=== PATIENT | female | born 1945 | race Caucasian/White ===

== ENCOUNTER 2020-05-31 13:16 | Inpatient (IN) | payer MEDICARE, OTHER ==
[2020-05-31] MEDS ORDERED: Acetaminophen 325 MG Tab PO PRN (14:36)
[2020-05-31] MEDS ORDERED: Dexamethasone 4 MG Tab PO ONE (15:00)
--- NOTE | 2020-05-31 15:05 | PCM.HP.2 ---
H&P History of Present Illness - General Date of Service: 05/31/20 Admit Problem/Dx: Admission Diagnosis/Problem Admission Diagnosis/Problem Pneumonia, organism unspecified - History of Present Illness Initial Comments - Free Text/Narative: 75-year-old female diagnosed with COVID-19 on 05/22/2020 with first symptoms on 05/19/2020 was following up with her acute care clinic was noted to be hypoxemic. Patient was seen initially at the clinic in [place], [place] on 05/22/2020 with a pulse ox of 84%. Patient was sent to the hospital in [place] where she was sent home on a concentrator, azithromycin, dexamethasone, and Covid vitamin protocol. Patient apparently has had worsening of her appetite, increased shortness of breath, dizziness, decreased drinking, and become more lethargic. She is now been titrated up to 4 L/min nasal cannula with sats of 90%. Patient does complain of a dry cough, but otherwise has no complaints. Patient does appear to have some memory loss and her daughter stated that she has been seen by a physician in the past who stated that she had age-appropriate memory loss. After CTA of the chest patient stated to me that she knows of a mass on her liver that is been there for approximately 10 years. See CTA for full details. Past medical history: Thyroid cancer, postoperative hypothyroidism tubulovillous adenoma, generalized anxiety disorder with panic attacks, osteoarthritis of the left knee, obstructive sleep apnea, osteopenia, central retinal artery occlusion, right, diverticulitis/diverticulosis, hypertension, hyperlipidemia, memory loss, Past surgical history: Thyroidectomy, total, laparoscopic sigmoidectomy and laparoscopic repair of ventral incisional hernia in 2017, strabismus surgery right eye, left total knee replacement Social history: Rarely drinks alcohol Stopped smoking in 1985 Lives alone, Retired Family history: Mother with heart disease Grandparents with Alzheimer's disease - Related Data Allergies/Adverse Reactions: Allergies Allergy/AdvReac Type Severity Reaction Status Date / Time banana Allergy Cannot Verified 05/31/20 15:40 Remember Dairy Products Allergy Cannot Verified 05/31/20 15:40 Remember erythromycin base Allergy Other Verified 05/31/20 15:40 wheat Allergy Cannot Verified 05/31/20 15:40 Remember Home Medications: Home Meds Acetaminophen [Tylenol] 325 mg PO DAILY PRN 05/31/20 [History] Albuterol Sulfate [Albuterol Sulfate HFA] 2 puff INH Q4H PRN 05/31/20 [History] Aspirin [Aspirin EC] 81 mg PO DAILY 05/31/20 [History] C-Levothyroxine/Liothyronine 1 tab PO DAILY 05/31/20 [History] Calc/D3/Mag/Zn/Anitra/Preet/[place] [Calcium 600 MG Plus Vit D] 2 tab PO DAILY 05/31/20 [History] Cholecalciferol (Vitamin D3) [Vitamin D3] 2,000 units PO DAILY 05/31/20 [History] Cyanocobalamin (Vitamin B12) [Vitamin B12] 500 mcg PO DAILY 05/31/20 [History] Losartan Potassium 100 mg PO DAILY 05/31/20 [History] Melatonin 10 mg PO BEDTIME PRN 05/31/20 [History] Montelukast [Singulair] 10 mg PO BEDTIME 05/31/20 [History] Naproxen Sodium 220 mg PO DAILY PRN 05/31/20 [History] Rosuvastatin Calcium 20 mg PO TUFR 05/31/20 [History] hydroCHLOROthiazide [Hydrochlorothiazide] 50 mg PO DAILY 05/31/20 [History] Social & Family History - Tobacco Use Tobacco Use Status *Q: Former Tobacco User Used Tobacco, but Quit: Yes Month/Year Tobacco Last Used: 1983 - Caffeine Use Caffeine Use: Reports: Coffee - Recreational Drug Use Recreational Drug Use: No H&P Review of Systems - Review of Systems: Review Of Systems: Comprehensive ROS is negative, except as noted in HPI. Exam - Exam Exam: See Below - Vital Signs Vital Signs: Last Vital Signs Temp 99.9 F 05/31/20 13:35 Pulse 86 05/31/20 13:35 Resp 32 H 05/31/20 13:35 BP 95/74 05/31/20 13:35 Pulse Ox 94 L 05/31/20 14:36 Weight: 171 lb 3.2 oz - Exam Quality Assessment: Supplemental Oxygen General: Alert, Oriented, 4 HEENT: Conjunctiva Clear, EOMI, Mucosa Moist & [place], PERRLA Neck: Supple, Trachea Midline, 2 Lungs: Normal Respiratory Effort, Rales (Bibasilar) Cardiovascular: Regular Rate, Regular Rhythm GI/Abdominal Exam: Normal Bowel Sounds, Soft, Non-Tender, No Organomegaly, No Distention, No Abnormal Bruit, No Mass Extremities: Normal Inspection, Normal Range of Motion, Non-Tender, No Pedal Edema, Normal Capillary Refill Peripheral Pulses: 2+: Posterior Tibial (L), Posterior Tibial (R), Dorsalis Pedis (L), Dorsalis Pedis (R) Skin: Warm, Dry, Intact Neurological: Cranial Nerves Intact Neuro Extensive - Mental Status: Alert, Oriented x3, Normal Mood/Affect Psychiatric: Alert, Normal Affect, Normal Mood - Patient Data Lab Results Last 24 hrs: WBC 11.0, hemoglobin 13.3, platelets 221, PTT, 27.3 INR 1.04, ferritin 1389, lactic acid 1.0, C-reactive protein 11.6, albumin 2.7, sodium 138, potassium 3.3, BUN 39, creatinine 1.2, estimated GFR 44, glucose 108, calcium 8.7, magnesium 1.8, total bilirubin 0.6, AST 27, ALT 32, alkaline phosphatase 53, LDH 276, troponin I less than 0.017, proBNP 213, TSH 0.009, D-dimer greater than 35 Result Diagrams: 05/31/20 15:13 05/31/20 15:13 Imaging Impressions Last 24 hrs: Chest x-ray: Patchy bilateral infiltrates CTA chest: Preliminary 1. Potentially significant mass posterior aspect right lobe of the liver. Multiphase contrast-enhanced MR or CT recommended to further assess. 2. No CT evidence of pulmonary embolism. 3. Extensive bilateral pulmonary parenchymal abnormality suspect for pneumonia. Consider viral etiologies, bacterial etiologies, and atypical etiologies #1 Interpretation EKG Date: 05/31/20 Rhythm: NSR Rate (Beats/Min): 86 [place]: Normal P-Wave: Present QRS: Normal ST-T: Normal QT: Normal Sepsis Event Note - Focused Exam Vital Signs: Vital Signs Temp Pulse Resp BP Pulse Ox Pulse Ox 05/31/20 14:36 94 L 05/31/20 13:35 99.9 F 86 32 H 95/74 94 L - Problem List (1) Pneumonia due to COVID-19 virus SNOMED Code(s): 274563994081989012 ICD Code: U07.1 - COVID-19; J12.82 - PNEUMONIA DUE TO CORONAVIRUS DISEASE 2019 Status: Acute Current Visit: Yes (2) Respiratory failure with hypoxia SNOMED Code(s): 39679347642833490 ICD Code: J96.91 - RESPIRATORY FAILURE, UNSPECIFIED WITH HYPOXIA Status: Acute Current Visit: Yes (3) Iatrogenic hyperthyroidism SNOMED Code(s): 150911359 ICD Code: E05.80 - OTHER THYROTOXICOSIS WITHOUT THYROTOXIC CRISIS OR STORM Status: Acute Current Visit: Yes (4) Hypothyroidism associated with surgical procedure SNOMED Code(s): 42466489 ICD Code: E89.0 - POSTPROCEDURAL HYPOTHYROIDISM Status: Acute Current Visit: Yes (5) Memory loss of unknown cause SNOMED Code(s): 98416801 ICD Code: R41.3 - OTHER AMNESIA Status: Acute Current Visit: Yes (6) Generalized anxiety disorder with panic attacks SNOMED Code(s): 45429298 ICD Code: F41.1 - GENERALIZED ANXIETY DISORDER; F41.0 - PANIC DISORDER [EPISODIC PAROXYSMAL ANXIETY] Status: Acute Current Visit: Yes Problem List Initiated/Reviewed/Updated: Yes Orders Last 24hrs: Active Orders 24 hr Category Date Time Status Patient Status [ADT] Routine ADT 05/31/20 14:34 Active Cardiac Monitoring [RC] . DIRECTED Care 05/31/20 14:34 Active EKG Documentation Completion [RC] STAT Care 05/31/20 14:40 Active Oxygen Therapy [RC] PRN Care 05/31/20 14:36 Active Positioning, Patient [RC] ASDIRECTED Care 05/31/20 14:39 Active RT Chest Physiotherapy [RC] ASDIRECTED Care 05/31/20 14:42 Active RT Incentive Spirometry [RC] ASDIRECTED Care 05/31/20 14:38 Active Up With Assistance [RC] ASDIRECTED Care 05/31/20 14:36 Active VTE/DVT Education [RC] PER UNIT ROUTINE Care 05/31/20 14:36 Active Vital Signs [RC] Q4H Care 05/31/20 14:36 Active OT Evaluation and Treatment [CONS] Routine Cons 05/31/20 14:41 Active PT Evaluation and Treatment [CONS] Routine Cons 05/31/20 14:41 Active Regular Diet [DIET] Diet 05/31/20 Dinner Active Chest 1V Frontal [CR] Stat Exams 05/31/20 14:40 Ordered BASIC METABOLIC PANEL,BMP [CHEM] Stat Lab 05/31/20 14:38 Ordered C-REACTIVE PROTEIN [CHEM] Stat Lab 05/31/20 14:38 Ordered CBC WITH AUTO DIFF [HEME] Stat Lab 05/31/20 14:39 Ordered CULTURE BLOOD [BC] Routine Lab 05/31/20 15:03 Ordered CULTURE BLOOD [BC] Stat Lab 05/31/20 14:40 Ordered CULTURE SPUTUM + SMEAR [RM] Routine Lab 05/31/20 14:40 Ordered D-DIMER QUANTITATIVE [COAG] Stat Lab 05/31/20 14:38 Ordered FERRITIN [CHEM] Routine Lab 05/31/20 14:38 Ordered HEPATIC FUNCTION PANEL,HFP [CHEM] Stat Lab 05/31/20 14:38 Ordered INFLUENZA A+B AG SCREEN [RM] Routine Lab 05/31/20 14:42 Ordered INR,PT,PROTHROMBIN TIME [COAG] Routine Lab 05/31/20 14:40 Ordered LACTATE DEHYDROGENASE,LDH [CHEM] Stat Lab 05/31/20 14:38 Ordered LACTIC ACID [CHEM] Stat Lab 05/31/20 14:38 Ordered PRO B-TYPE NATRIUR PEPT,BNPPRO [CHEM] Stat Lab 05/31/20 14:42 Ordered PROCALCITONIN [REF] Stat Lab 05/31/20 14:38 Ordered TROPONIN I [CHEM] Stat Lab 05/31/20 14:38 Ordered TSH [CHEM] Routine Lab 05/31/20 14:38 Ordered UA W/MICHAEL RFLX IF INDICATED [URIN] Routine Lab 05/31/20 14:38 Ordered Acetaminophen [TylenoL] Med 05/31/20 14:36 Active 650 mg PO Q4H PRN Enoxaparin [Lovenox] Med 06/01/20 09:00 Pending 40 mg SUBCUT DAILY cefTRIAXone [Rocephin] 2 gm Med 05/31/20 15:00 Active Sodium Chloride 0.9% [Normal Saline] 100 ml IV Q24H Isolation [COMM] Routine Oth 05/31/20 14:42 Ordered Isolation [COMM] Stat Oth 05/31/20 14:38 Ordered Resuscitation Status Routine Resus Stat 05/31/20 14:36 Ordered Medication Orders Acetaminophen (Tylenol) 650 mg PO Q4H PRN PRN Reason: Pain (Mild 1-3)/fever Enoxaparin Sodium (Lovenox) 40 mg SUBCUT DAILY BRIDGER Ceftriaxone Sodium 2 gm/ (Sodium Chloride) 100 mls @ 200 mls/hr IV Q24H BRIDGER Stop: 06/04/20 15:29 Assessment/Plan Comment:: Assessment 75-year-old female with positive COVID-19 10 days ago and symptoms for 13 days from [place], [place] was transferred here as a direct admission from her clinic. COVID-19 pneumonia Possible right lower lobe pneumonia Respiratory failurehypoxemic * Patient diagnosed 10 days ago with COVID-19 and symptomatic for 13 days. * She has been worsening over the last few days. * D-dimer greater than 35, WBC 11, lactic acid 1.0, LDH 276, ferritin 1389, C- reactive protein 11.6 * CT of the chest was negative for PE * Lower extremities show no swelling or, edema, redness, or tenderness essentially making lower extremity VTE unlikely * Patient is between 10 and 13 days past Covid and has already had 9 days of dexamethasone. * She will not likely benefit from remdesivir. * I would like to give her Actemra, but we do not have any and it is a drop shipment so we will not be able to get it for 4 to 5 days. Iatrogenic hyperthyroidism Surgical removal of the thyroid secondary to thyroid cancer * She is on a combination of C levothyroxine/liothyronine 75 mcg / 25 mcg SR capsule daily * TSH is significantly low at 0.009 * Patient has a history of anxiety Generalized anxiety disorder with panic attacks * Patient is currently hyperthyroid and this would increase her anxiety and panic attacks. Hypokalemia Hypoalbuminemia * Likely secondary to poor oral intake secondary to COVID-19 * Potassium 3.3, albumin 2.7 Acute versus chronic renal disease * Creatinine 1.2 with an estimated GFR of 44 * Some prerenal component could be part of this with BUN of 39 a creatinine of 1.2 making her BUN to creatinine ratio greater than 20 * Known poor oral intake Plan * Admit to medical floor on telemetry and continuous pulse ox * FiO2 to keep SPO2 between 88 and 94% * Rocephin x5 days * Pepcid, melatonin, vitamin D, zinc * Incentive spirometry and Acapella * DuoNeb every 6 hours as needed * Patient required high flow nasal cannula almost immediately once arriving to the floor * Elevated D-dimer prompted starting a bolus of heparin while we are waiting CTA. CT machine was down initially delaying imaging. Once PE was ruled out Heparin was stopped and patient will be switched over to Lovenox for VTE prophylaxis. * Give patient 1 L LR over 10 hours to help with dehydration and possible renal insufficiency. * Patient is out of the window for remdesivir. * Give last dose of dexamethasone. * Decrease thyroid medications to only levothyroxine at 75 mcg daily * Follow Covid labs daily * Hold hydrochlorothiazide but continue other medications as propria. * Dietary consult and encourage oral intake. * CODE STATUS: DNR/DNI * Next of kin Yvrose: - Mortality Measure Prognosis:: Poor
--- NOTE | 2020-05-31 16:03 | CR ---
Chest: Portable view of the chest was obtained. Comparison: No prior chest imaging is available. Areas of increased density are seen within both inferior lungs. Findings most likely have the appearance of atelectasis but difficult to exclude an area of pneumonia on the right side. Upper lungs are clear. Heart size and mediastinum are normal. Surgical clips are seen within the neck. Impression: 1. Areas of increased density within both lung bases as noted above. Findings most likely due to prominent atelectasis although difficult to exclude right basilar pneumonia. 2. Other incidental findings as noted above. Diagnostic code #3
[2020-05-31] MEDS: cefTRIAXone 2 GM in Sodium Chloride 0.9% 100 ML IV SCH (16:41)
[2020-05-31] MEDS ORDERED: Potassium Chloride 20 MEQ Tab.ER PO ONE (17:15)
[2020-05-31] MEDS ORDERED: Heparin Sodium/D5W 25,000 UNITS/500 ML BAG IV SCH (17:15)
[2020-05-31] MEDS ORDERED: Heparin Sodium 5,000 Units/ML Vial IVPUSH ONE (17:30)
[2020-05-31] MEDS ORDERED: Magnesium Sulfate/Water 2 GM in Premix Bag 1 BAG IV ONE (17:31)
[2020-05-31] MEDS ORDERED: Tocilizumab 400 MG/20 ML SDV SUBCUT ONE (17:59)
[2020-05-31] MEDS ORDERED: Iopamidol 755 Mg/ML 100 ML Bottle IVPUSH ONE (18:19)
[2020-05-31] MEDS: Melatonin 3 MG Tab PO SCH (20:44)
[2020-05-31] MEDS: Famotidine 20 MG Tab PO SCH (20:45)
[2020-05-31] MEDS: Montelukast 10 MG Tab PO SCH (20:45)
[2020-05-31] MEDS ORDERED: Albuterol/Ipratropium 3.0-0.5 MG/3 ML Neb Soln NEB PRN (21:06)
[2020-05-31] MEDS ORDERED: Lactated Ringers 1,000 ML IV SCH (21:15)
[2020-06-01] MEDS ORDERED: Levothyroxine 75 MCG Tab PO SCH (06:00)
[2020-06-01] MEDS: Enoxaparin 40 MG/0.4 ML Syringe SUBCUT SCH ×2 (08:31→21:33)
[2020-06-01] MEDS: Losartan 100 MG Tab PO SCH (08:36)
[2020-06-01] MEDS: Famotidine 20 MG Tab PO SCH ×2 (08:36→21:34)
[2020-06-01] MEDS: Cholecalciferol (Vitamin D3) 5,000 UNIT Cap PO SCH (08:37)
[2020-06-01] MEDS: Aspirin 81 MG Tab.EC PO SCH (08:37)
[2020-06-01] MEDS ORDERED: Enoxaparin 40 MG/0.4 ML Syringe SUBCUT SCH (09:00)
[2020-06-01] MEDS ORDERED: Zinc Sulfate 220 MG Cap PO ONE (09:00)
[2020-06-01] MEDS: Zinc Sulfate 220 MG Cap PO SCH (09:23)
--- NOTE | 2020-06-01 12:48 | PCM.PN ---
- General Info Date of Service: 06/01/20 Admission Dx/Problem (Free Text): Admission Diagnosis/Problem Admission Diagnosis/Problem Pneumonia, organism unspecified Subjective Update: Patient is now on high flow nasal cannula. She has no complaints other than continued cough. Appetite is very good and she states she is continues to be hungry. We were able to get Actemra for today. Functional Status: Reports: Pain Controlled - Review of Systems General: Reports: No Symptoms HEENT: Reports: No Symptoms Pulmonary: Reports: Shortness of Breath, Cough Cardiovascular: Reports: No Symptoms Gastrointestinal: Reports: No Symptoms Musculoskeletal: Reports: No Symptoms Psychiatric: Reports: No Symptoms - Patient Data Vitals - Most Recent: Last Vital Signs Temp 97.7 F 06/01/20 12:11 Pulse 59 L 06/01/20 12:11 Resp 20 06/01/20 12:11 BP 126/74 06/01/20 12:11 Pulse Ox 93 L 06/01/20 12:11 Weight - Most Recent: 170 lb 6.4 oz I&O - Last 24 Hours: Intake & Output 05/31/20 06/01/20 06/01/20 22:59 06:59 14:59 Intake Total 979 1147 500 Output Total 975 Balance 979 172 500 Lab Results Last 24 Hours: Laboratory Results - last 24 hr 05/31/20 05/31/20 05/31/20 Range/Units 15:13 15:13 15:13 WBC (3.98-10.04) K/mm3 RBC (3.98-5.22) M/mm3 Hgb (11.2-15.7) gm/dl Hct (34.1-44.9) % MCV (79.4-94.8) fl MCH (25.6-32.2) pg MCHC (32.2-35.5) g/dl RDW Std Deviation (36.4-46.3) fL Plt Count (182-369) K/mm3 MPV (9.4-12.3) fl Neut % (Auto) (34.0-71.1) % Lymph % (Auto) (19.3-51.7) % Taylor % (Auto) (4.7-12.5) % Eos % (Auto) (0.7-5.8) Baso % (Auto) (0.1-1.2) % Neut # (Auto) (1.56-6.13) K/mm3 Lymph # (Auto) (1.18-3.74) K/mm3 Taylor # (Auto) (0.24-0.36) K/mm3 Eos # (Auto) (0.04-0.36) K/mm3 Baso # (Auto) (0.01-0.08) K/mm3 Manual Slide Review PT 11.1 (9.7-12.0) SECONDS INR 1.04 APTT (21.7-31.4) SECONDS D-Dimer, Quantitative > 35.20 H (0.19-0.50) mg/L Puncture Site ABG pH (7.35-7.45) ABG pCO2 (35.0-45.0) mmHg ABG pO2 (80.0-100.0) mmHg ABG HCO3 (22.0-26.0) meq/L ABG O2 Saturation (96.0-97.0) % ABG Base Excess (-2-2.0) David Test A-a Gradient mmHg O2 Delivery Device Oxygen Flow Rate FiO2 (21.00-100.00) % Sodium 138 (136-145) mEq/L Potassium 3.3 L (3.5-5.1) mEq/L Chloride 98 (98-107) mEq/L Carbon Dioxide 29 (21-32) mEq/L Anion Gap 14.3 (5-15) BUN 39 H (7-18) mg/dL Creatinine 1.2 H (0.55-1.02) mg/dL Est Cr Clr Drug Dosing 31.05 mL/min Estimated GFR (MDRD) 44 (>60) mL/min BUN/Creatinine Ratio 32.5 H (14-18) Glucose 108 (83-115) mg/dL Lactic Acid (0.4-2.0) mmol/L Calcium 8.7 (8.5-10.1) mg/dL Phosphorus (2.6-4.7) mg/dL Magnesium (1.8-2.4) mg/dl Ferritin 1389 H (8-252) ng/ml Total Bilirubin 0.6 (0.2-1.0) mg/dL Direct Bilirubin 0.10 (0.0-0.2) mg/dl Indirect Bilirubin 0.50 AST 27 (15-37) U/L ALT 32 (14-59) U/L Alkaline Phosphatase 53 (46-116) U/L Lactate Dehydrogenase 276 H (81-234) U/L Troponin I < 0.017 (0.00-0.056) ng/mL C-Reactive Protein 11.6 H* (<1.0) mg/dL NT-Pro-B Natriuret Pep (0-450) pg/mL Total Protein 6.8 (6.4-8.2) g/dl Albumin 2.7 L (3.4-5.0) g/dl Globulin 4.1 gm/dL Albumin/Globulin Ratio 0.7 L (1-2) TSH 3rd Generation 0.009 L (0.358-3.74) uIU/mL Urine Color (Yellow) Urine Appearance (Clear) Urine pH (5.0-8.0) Ur Specific [place] (1.005-1.030) Urine Protein (Negative) Urine Glucose (UA) (Negative) Urine Ketones (Negative) Urine Occult Blood (Negative) Urine Nitrite (Negative) Urine Bilirubin (Negative) Urine Urobilinogen (0.2-1.0) Ur Leukocyte Esterase (Negative) 05/31/20 05/31/20 05/31/20 Range/Units 15:13 15:13 15:13 WBC 11.05 H (3.98-10.04) K/mm3 RBC 4.79 (3.98-5.22) M/mm3 Hgb 13.3 (11.2-15.7) gm/dl Hct 41.9 (34.1-44.9) % MCV 87.5 (79.4-94.8) fl MCH 27.8 (25.6-32.2) pg MCHC 31.7 L (32.2-35.5) g/dl RDW Std Deviation 45.2 (36.4-46.3) fL Plt Count 221 (182-369) K/mm3 MPV 11.1 (9.4-12.3) fl Neut % (Auto) 88.9 H (34.0-71.1) % Lymph % (Auto) 5.9 L (19.3-51.7) % Taylor % (Auto) 4.7 (4.7-12.5) % Eos % (Auto) 0.1 L (0.7-5.8) Baso % (Auto) 0.1 (0.1-1.2) % Neut # (Auto) 9.83 H (1.56-6.13) K/mm3 Lymph # (Auto) 0.65 L (1.18-3.74) K/mm3 Taylor # (Auto) 0.52 H (0.24-0.36) K/mm3 Eos # (Auto) 0.01 L (0.04-0.36) K/mm3 Baso # (Auto) 0.01 (0.01-0.08) K/mm3 Manual Slide Review Abnormal smear PT (9.7-12.0) SECONDS INR APTT (21.7-31.4) SECONDS D-Dimer, Quantitative (0.19-0.50) mg/L Puncture Site ABG pH (7.35-7.45) ABG pCO2 (35.0-45.0) mmHg ABG pO2 (80.0-100.0) mmHg ABG HCO3 (22.0-26.0) meq/L ABG O2 Saturation (96.0-97.0) % ABG Base Excess (-2-2.0) David Test A-a Gradient mmHg O2 Delivery Device Oxygen Flow Rate FiO2 (21.00-100.00) % Sodium (136-145) mEq/L Potassium (3.5-5.1) mEq/L Chloride (98-107) mEq/L Carbon Dioxide (21-32) mEq/L Anion Gap (5-15) BUN (7-18) mg/dL Creatinine (0.55-1.02) mg/dL Est Cr Clr Drug Dosing mL/min Estimated GFR (MDRD) (>60) mL/min BUN/Creatinine Ratio (14-18) Glucose (83-115) mg/dL Lactic Acid 1.0 (0.4-2.0) mmol/L Calcium (8.5-10.1) mg/dL Phosphorus (2.6-4.7) mg/dL Magnesium (1.8-2.4) mg/dl Ferritin (8-252) ng/ml Total Bilirubin (0.2-1.0) mg/dL Direct Bilirubin (0.0-0.2) mg/dl Indirect Bilirubin AST (15-37) U/L ALT (14-59) U/L Alkaline Phosphatase (46-116) U/L Lactate Dehydrogenase (81-234) U/L Troponin I (0.00-0.056) ng/mL C-Reactive Protein (<1.0) mg/dL NT-Pro-B Natriuret Pep 213 (0-450) pg/mL Total Protein (6.4-8.2) g/dl Albumin (3.4-5.0) g/dl Globulin gm/dL Albumin/Globulin Ratio (1-2) TSH 3rd Generation (0.358-3.74) uIU/mL Urine Color (Yellow) Urine Appearance (Clear) Urine pH (5.0-8.0) Ur Specific [place] (1.005-1.030) Urine Protein (Negative) Urine Glucose (UA) (Negative) Urine Ketones (Negative) Urine Occult Blood (Negative) Urine Nitrite (Negative) Urine Bilirubin (Negative) Urine Urobilinogen (0.2-1.0) Ur Leukocyte Esterase (Negative) 05/31/20 05/31/20 05/31/20 Range/Units 16:27 16:27 17:57 WBC (3.98-10.04) K/mm3 RBC (3.98-5.22) M/mm3 Hgb (11.2-15.7) gm/dl Hct (34.1-44.9) % MCV (79.4-94.8) fl MCH (25.6-32.2) pg MCHC (32.2-35.5) g/dl RDW Std Deviation (36.4-46.3) fL Plt Count (182-369) K/mm3 MPV (9.4-12.3) fl Neut % (Auto) (34.0-71.1) % Lymph % (Auto) (19.3-51.7) % Taylor % (Auto) (4.7-12.5) % Eos % (Auto) (0.7-5.8) Baso % (Auto) (0.1-1.2) % Neut # (Auto) (1.56-6.13) K/mm3 Lymph # (Auto) (1.18-3.74) K/mm3 Taylor # (Auto) (0.24-0.36) K/mm3 Eos # (Auto) (0.04-0.36) K/mm3 Baso # (Auto) (0.01-0.08) K/mm3 Manual Slide Review PT (9.7-12.0) SECONDS INR APTT 27.3 (21.7-31.4) SECONDS D-Dimer, Quantitative (0.19-0.50) mg/L Puncture Site Rt radial ABG pH 7.46 H (7.35-7.45) ABG pCO2 39.3 (35.0-45.0) mmHg ABG pO2 75.0 L (80.0-100.0) mmHg ABG HCO3 27.6 H (22.0-26.0) meq/L ABG O2 Saturation 95.5 L (96.0-97.0) % ABG Base Excess 4.0 H (-2-2.0) David Test Positive A-a Gradient 232 mmHg O2 Delivery Device Hiflow nasal cannula Oxygen Flow Rate 50.0 FiO2 50.00 (21.00-100.00) % Sodium (136-145) mEq/L Potassium (3.5-5.1) mEq/L Chloride (98-107) mEq/L Carbon Dioxide (21-32) mEq/L Anion Gap (5-15) BUN (7-18) mg/dL Creatinine (0.55-1.02) mg/dL Est Cr Clr Drug Dosing mL/min Estimated GFR (MDRD) (>60) mL/min BUN/Creatinine Ratio (14-18) Glucose (83-115) mg/dL Lactic Acid (0.4-2.0) mmol/L Calcium (8.5-10.1) mg/dL Phosphorus (2.6-4.7) mg/dL Magnesium 1.8 (1.8-2.4) mg/dl Ferritin (8-252) ng/ml Total Bilirubin (0.2-1.0) mg/dL Direct Bilirubin (0.0-0.2) mg/dl Indirect Bilirubin AST (15-37) U/L ALT (14-59) U/L Alkaline Phosphatase (46-116) U/L Lactate Dehydrogenase (81-234) U/L Troponin I (0.00-0.056) ng/mL C-Reactive Protein (<1.0) mg/dL NT-Pro-B Natriuret Pep (0-450) pg/mL Total Protein (6.4-8.2) g/dl Albumin (3.4-5.0) g/dl Globulin gm/dL Albumin/Globulin Ratio (1-2) TSH 3rd Generation (0.358-3.74) uIU/mL Urine Color (Yellow) Urine Appearance (Clear) Urine pH (5.0-8.0) Ur Specific [place]ula (1.005-1.030) Urine Protein (Negative) Urine Glucose (UA) (Negative) Urine Ketones (Negative) Urine Occult Blood (Negative) Urine Nitrite (Negative) Urine Bilirubin (Negative) Urine Urobilinogen (0.2-1.0) Ur Leukocyte Esterase (Negative) 05/31/20 06/01/20 06/01/20 Range/Units 21:25 06:00 06:00 WBC 7.65 (3.98-10.04) K/mm3 RBC 4.81 (3.98-5.22) M/mm3 Hgb 13.2 (11.2-15.7) gm/dl Hct 42.4 (34.1-44.9) % MCV 88.1 (79.4-94.8) fl MCH 27.4 (25.6-32.2) pg MCHC 31.1 L (32.2-35.5) g/dl RDW Std Deviation 46.1 (36.4-46.3) fL Plt Count 213 (182-369) K/mm3 MPV 11.2 (9.4-12.3) fl Neut % (Auto) 86.5 H (34.0-71.1) % Lymph % (Auto) 10.2 L (19.3-51.7) % Taylor % (Auto) 2.7 L (4.7-12.5) % Eos % (Auto) 0 L (0.7-5.8) Baso % (Auto) 0.3 (0.1-1.2) % Neut # (Auto) 6.62 H (1.56-6.13) K/mm3 Lymph # (Auto) 0.78 L (1.18-3.74) K/mm3 Taylor # (Auto) 0.21 L (0.24-0.36) K/mm3 Eos # (Auto) 0.00 L (0.04-0.36) K/mm3 Baso # (Auto) 0.02 (0.01-0.08) K/mm3 Manual Slide Review Abnormal smear PT (9.7-12.0) SECONDS INR APTT 27.1 (21.7-31.4) SECONDS D-Dimer, Quantitative 10.65 H (0.19-0.50) mg/L Puncture Site ABG pH (7.35-7.45) ABG pCO2 (35.0-45.0) mmHg ABG pO2 (80.0-100.0) mmHg ABG HCO3 (22.0-26.0) meq/L ABG O2 Saturation (96.0-97.0) % ABG Base Excess (-2-2.0) David Test A-a Gradient mmHg O2 Delivery Device Oxygen Flow Rate FiO2 (21.00-100.00) % Sodium (136-145) mEq/L Potassium (3.5-5.1) mEq/L Chloride (98-107) mEq/L Carbon Dioxide (21-32) mEq/L Anion Gap (5-15) BUN (7-18) mg/dL Creatinine (0.55-1.02) mg/dL Est Cr Clr Drug Dosing mL/min Estimated GFR (MDRD) (>60) mL/min BUN/Creatinine Ratio (14-18) Glucose (83-115) mg/dL Lactic Acid (0.4-2.0) mmol/L Calcium (8.5-10.1) mg/dL Phosphorus (2.6-4.7) mg/dL Magnesium (1.8-2.4) mg/dl Ferritin (8-252) ng/ml Total Bilirubin (0.2-1.0) mg/dL Direct Bilirubin (0.0-0.2) mg/dl Indirect Bilirubin AST (15-37) U/L ALT (14-59) U/L Alkaline Phosphatase (46-116) U/L Lactate Dehydrogenase (81-234) U/L Troponin I (0.00-0.056) ng/mL C-Reactive Protein (<1.0) mg/dL NT-Pro-B Natriuret Pep (0-450) pg/mL Total Protein (6.4-8.2) g/dl Albumin (3.4-5.0) g/dl Globulin gm/dL Albumin/Globulin Ratio (1-2) TSH 3rd Generation (0.358-3.74) uIU/mL Urine Color Yellow (Yellow) Urine Appearance Clear (Clear) Urine pH 6.5 (5.0-8.0) Ur Specific [place] 1.010 (1.005-1.030) Urine Protein Negative (Negative) Urine Glucose (UA) Trace H (Negative) Urine Ketones Negative (Negative) Urine Occult Blood Negative (Negative) Urine Nitrite Negative (Negative) Urine Bilirubin Negative (Negative) Urine Urobilinogen 0.2 (0.2-1.0) Ur Leukocyte Esterase Negative (Negative) 06/01/20 Range/Units 06:00 WBC (3.98-10.04) K/mm3 RBC (3.98-5.22) M/mm3 Hgb (11.2-15.7) gm/dl Hct (34.1-44.9) % MCV (79.4-94.8) fl MCH (25.6-32.2) pg MCHC (32.2-35.5) g/dl RDW Std Deviation (36.4-46.3) fL Plt Count (182-369) K/mm3 MPV (9.4-12.3) fl Neut % (Auto) (34.0-71.1) % Lymph % (Auto) (19.3-51.7) % Taylor % (Auto) (4.7-12.5) % Eos % (Auto) (0.7-5.8) Baso % (Auto) (0.1-1.2) % Neut # (Auto) (1.56-6.13) K/mm3 Lymph # (Auto) (1.18-3.74) K/mm3 Taylor # (Auto) (0.24-0.36) K/mm3 Eos # (Auto) (0.04-0.36) K/mm3 Baso # (Auto) (0.01-0.08) K/mm3 Manual Slide Review PT (9.7-12.0) SECONDS INR APTT (21.7-31.4) SECONDS D-Dimer, Quantitative (0.19-0.50) mg/L Puncture Site ABG pH (7.35-7.45) ABG pCO2 (35.0-45.0) mmHg ABG pO2 (80.0-100.0) mmHg ABG HCO3 (22.0-26.0) meq/L ABG O2 Saturation (96.0-97.0) % ABG Base Excess (-2-2.0) David Test A-a Gradient mmHg O2 Delivery Device Oxygen Flow Rate FiO2 (21.00-100.00) % Sodium 143 (136-145) mEq/L Potassium 4.1 (3.5-5.1) mEq/L Chloride 104 (98-107) mEq/L Carbon Dioxide 32 (21-32) mEq/L Anion Gap 11.1 (5-15) BUN 37 H (7-18) mg/dL Creatinine 0.9 (0.55-1.02) mg/dL Est Cr Clr Drug Dosing 41.40 mL/min Estimated GFR (MDRD) > 60 (>60) mL/min BUN/Creatinine Ratio 41.1 H (14-18) Glucose 144 H (83-115) mg/dL Lactic Acid (0.4-2.0) mmol/L Calcium 8.9 (8.5-10.1) mg/dL Phosphorus 3.8 (2.6-4.7) mg/dL Magnesium 2.6 H (1.8-2.4) mg/dl Ferritin (8-252) ng/ml Total Bilirubin 0.4 (0.2-1.0) mg/dL Direct Bilirubin (0.0-0.2) mg/dl Indirect Bilirubin AST 26 (15-37) U/L ALT 30 (14-59) U/L Alkaline Phosphatase 50 (46-116) U/L Lactate Dehydrogenase (81-234) U/L Troponin I (0.00-0.056) ng/mL C-Reactive Protein 15.9 H* (<1.0) mg/dL NT-Pro-B Natriuret Pep (0-450) pg/mL Total Protein 6.8 (6.4-8.2) g/dl Albumin 2.4 L (3.4-5.0) g/dl Globulin 4.4 gm/dL Albumin/Globulin Ratio 0.6 L (1-2) TSH 3rd Generation (0.358-3.74) uIU/mL Urine Color (Yellow) Urine Appearance (Clear) Urine pH (5.0-8.0) Ur Specific Sula (1.005-1.030) Urine Protein (Negative) Urine Glucose (UA) (Negative) Urine Ketones (Negative) Urine Occult Blood (Negative) Urine Nitrite (Negative) Urine Bilirubin (Negative) Urine Urobilinogen (0.2-1.0) Ur Leukocyte Esterase (Negative) Med Orders - Current: Current Medications Acetaminophen (Tylenol) 650 mg PO Q4H PRN PRN Reason: Pain (Mild 1-3)/fever Last Admin: 05/31/20 16:42 Dose: 650 mg Documented by: Albuterol/Ipratropium (Duoneb 3.0-0.5 Mg/3 Ml) 3 ml NEB Q6HRRT PRN PRN Reason: Dyspnea Aspirin (Halfprin) 81 mg PO DAILY [facility] Last Admin: 06/01/20 08:37 Dose: 81 mg Documented by: Cholecalciferol (Vitamin D3) 5,000 unit PO DAILY [facility] Last Admin: 06/01/20 08:37 Dose: 5,000 unit Documented by: Enoxaparin Sodium (Lovenox) 40 mg SUBCUT Q12H [facility] Last Admin: 06/01/20 08:31 Dose: 40 mg Documented by: Famotidine (Pepcid) 20 mg PO BID [facility] Last Admin: 06/01/20 08:36 Dose: 20 mg Documented by: Ceftriaxone Sodium 2 gm/ (Sodium Chloride) 100 mls @ 200 mls/hr IV Q24H [facility] Stop: 06/04/20 15:29 Last Admin: 05/31/20 16:41 Dose: 200 mls/hr Documented by: Tocilizumab 600 mg/ Sodium (Chloride) 100 mls @ 100 mls/hr IV ONETIME [facility] Levothyroxine Sodium (Levothyroxine) 75 mcg PO ACBREAKFAST [facility] Losartan Potassium (Cozaar) 100 mg PO DAILY [facility] Last Admin: 06/01/20 08:36 Dose: 100 mg Documented by: Melatonin (Melatonin) 9 mg PO BEDTIME [facility] Last Admin: 05/31/20 20:44 Dose: 9 mg Documented by: Montelukast Sodium (Singulair) 10 mg PO BEDTIME [facility] Last Admin: 05/31/20 20:45 Dose: 10 mg Documented by: Zinc Sulfate (Zincate) 220 mg PO DAILY [facility] Last Admin: 06/01/20 09:23 Dose: Not Given Documented by: Discontinued Medications Dexamethasone (Dexamethasone) 6 mg PO ONETIME ONE Stop: 05/31/20 15:01 Last Admin: 05/31/20 16:41 Dose: 6 mg Documented by: Enoxaparin Sodium (Lovenox) 40 mg SUBCUT DAILY [facility] Heparin Sodium (Porcine) (Heparin Sodium) 5,000 units IVPUSH .BOLUS ONE Stop: 05/31/20 17:31 Last Admin: 05/31/20 17:45 Dose: 5,000 units Documented by: Heparin Sodium/Dextrose (Heparin 25,000 Units In D5w 500 Ml) 25,000 units in 500 mls @ 26 mls/hr IV TITRATE BRIDGER; Protocol Last Admin: 05/31/20 17:45 Dose: 1,300 units/hr, 26 mls/hr Documented by: Magnesium Sulfate 2 gm/ Premix 50 mls @ 25 mls/hr IV ONETIME ONE Stop: 05/31/20 19:30 Last Admin: 05/31/20 18:14 Dose: 25 mls/hr Documented by: Lactated Ringer's (Ringers, Lactated) 1,000 mls @ 100 mls/hr IV ASDIRECTED [facility] Stop: 06/01/20 07:14 Last Admin: 06/01/20 00:21 Dose: 100 mls/hr Documented by: Iopamidol (Isovue-370 (76%)) 100 ml IVPUSH ONETIME ONE Stop: 05/31/20 18:20 Last Admin: 05/31/20 18:51 Dose: 100 ml Documented by: Potassium Chloride (Klor-Con M20) 40 meq PO ONETIME ONE Stop: 05/31/20 17:16 Last Admin: 05/31/20 17:46 Dose: 40 meq Documented by: Zinc Sulfate (Zincate) 220 mg PO ONETIME ONE Stop: 06/01/20 09:01 Last Admin: 06/01/20 09:23 Dose: 220 mg Documented by: - Exam Quality Assessment: Supplemental Oxygen General: Alert, Oriented HEENT: Pupils Equal, Mucous Membr. Moist/[place] Neck: Supple Lungs: Rales (Bibasilar). No: Normal Respiratory Effort Cardiovascular: Regular Rate, Regular Rhythm Extremities: Normal Inspection, Normal Range of Motion, Non-Tender, No Pedal Edema, Normal Capillary Refill Psy/Mental Status: Alert, Normal Affect, Normal Mood - Patient Data Lab Results Last 24 hrs: Laboratory Results - last 24 hr 05/31/20 05/31/20 05/31/20 Range/Units 15:13 15:13 15:13 WBC (3.98-10.04) K/mm3 RBC (3.98-5.22) M/mm3 Hgb (11.2-15.7) gm/dl Hct (34.1-44.9) % MCV (79.4-94.8) fl MCH (25.6-32.2) pg MCHC (32.2-35.5) g/dl RDW Std Deviation (36.4-46.3) fL Plt Count (182-369) K/mm3 MPV (9.4-12.3) fl Neut % (Auto) (34.0-71.1) % Lymph % (Auto) (19.3-51.7) % Taylor % (Auto) (4.7-12.5) % Eos % (Auto) (0.7-5.8) Baso % (Auto) (0.1-1.2) % Neut # (Auto) (1.56-6.13) K/mm3 Lymph # (Auto) (1.18-3.74) K/mm3 Taylor # (Auto) (0.24-0.36) K/mm3 Eos # (Auto) (0.04-0.36) K/mm3 Baso # (Auto) (0.01-0.08) K/mm3 Manual Slide Review PT 11.1 (9.7-12.0) SECONDS INR 1.04 APTT (21.7-31.4) SECONDS D-Dimer, Quantitative > 35.20 H (0.19-0.50) mg/L Puncture Site ABG pH (7.35-7.45) ABG pCO2 (35.0-45.0) mmHg ABG pO2 (80.0-100.0) mmHg ABG HCO3 (22.0-26.0) meq/L ABG O2 Saturation (96.0-97.0) % ABG Base Excess (-2-2.0) David Test A-a Gradient mmHg O2 Delivery Device Oxygen Flow Rate FiO2 (21.00-100.00) % Sodium 138 (136-145) mEq/L Potassium 3.3 L (3.5-5.1) mEq/L Chloride 98 (98-107) mEq/L Carbon Dioxide 29 (21-32) mEq/L Anion Gap 14.3 (5-15) BUN 39 H (7-18) mg/dL Creatinine 1.2 H (0.55-1.02) mg/dL Est Cr Clr Drug Dosing 31.05 mL/min Estimated GFR (MDRD) 44 (>60) mL/min BUN/Creatinine Ratio 32.5 H (14-18) Glucose 108 (83-115) mg/dL Lactic Acid (0.4-2.0) mmol/L Calcium 8.7 (8.5-10.1) mg/dL Phosphorus (2.6-4.7) mg/dL Magnesium (1.8-2.4) mg/dl Ferritin 1389 H (8-252) ng/ml Total Bilirubin 0.6 (0.2-1.0) mg/dL Direct Bilirubin 0.10 (0.0-0.2) mg/dl Indirect Bilirubin 0.50 AST 27 (15-37) U/L ALT 32 (14-59) U/L Alkaline Phosphatase 53 (46-116) U/L Lactate Dehydrogenase 276 H (81-234) U/L Troponin I < 0.017 (0.00-0.056) ng/mL C-Reactive Protein 11.6 H* (<1.0) mg/dL NT-Pro-B Natriuret Pep (0-450) pg/mL Total Protein 6.8 (6.4-8.2) g/dl Albumin 2.7 L (3.4-5.0) g/dl Globulin 4.1 gm/dL Albumin/Globulin Ratio 0.7 L (1-2) TSH 3rd Generation 0.009 L (0.358-3.74) uIU/mL Urine Color (Yellow) Urine Appearance (Clear) Urine pH (5.0-8.0) Ur Specific [place] (1.005-1.030) Urine Protein (Negative) Urine Glucose (UA) (Negative) Urine Ketones (Negative) Urine Occult Blood (Negative) Urine Nitrite (Negative) Urine Bilirubin (Negative) Urine Urobilinogen (0.2-1.0) Ur Leukocyte Esterase (Negative) 05/31/20 05/31/20 05/31/20 Range/Units 15:13 15:13 15:13 WBC 11.05 H (3.98-10.04) K/mm3 RBC 4.79 (3.98-5.22) M/mm3 Hgb 13.3 (11.2-15.7) gm/dl Hct 41.9 (34.1-44.9) % MCV 87.5 (79.4-94.8) fl MCH 27.8 (25.6-32.2) pg MCHC 31.7 L (32.2-35.5) g/dl RDW Std Deviation 45.2 (36.4-46.3) fL Plt Count 221 (182-369) K/mm3 MPV 11.1 (9.4-12.3) fl Neut % (Auto) 88.9 H (34.0-71.1) % Lymph % (Auto) 5.9 L (19.3-51.7) % Taylor % (Auto) 4.7 (4.7-12.5) % Eos % (Auto) 0.1 L (0.7-5.8) Baso % (Auto) 0.1 (0.1-1.2) % Neut # (Auto) 9.83 H (1.56-6.13) K/mm3 Lymph # (Auto) 0.65 L (1.18-3.74) K/mm3 Taylor # (Auto) 0.52 H (0.24-0.36) K/mm3 Eos # (Auto) 0.01 L (0.04-0.36) K/mm3 Baso # (Auto) 0.01 (0.01-0.08) K/mm3 Manual Slide Review Abnormal smear PT (9.7-12.0) SECONDS INR APTT (21.7-31.4) SECONDS D-Dimer, Quantitative (0.19-0.50) mg/L Puncture Site ABG pH (7.35-7.45) ABG pCO2 (35.0-45.0) mmHg ABG pO2 (80.0-100.0) mmHg ABG HCO3 (22.0-26.0) meq/L ABG O2 Saturation (96.0-97.0) % ABG Base Excess (-2-2.0) David Test A-a Gradient mmHg O2 Delivery Device Oxygen Flow Rate FiO2 (21.00-100.00) % Sodium (136-145) mEq/L Potassium (3.5-5.1) mEq/L Chloride (98-107) mEq/L Carbon Dioxide (21-32) mEq/L Anion Gap (5-15) BUN (7-18) mg/dL Creatinine (0.55-1.02) mg/dL Est Cr Clr Drug Dosing mL/min Estimated GFR (MDRD) (>60) mL/min BUN/Creatinine Ratio (14-18) Glucose (83-115) mg/dL Lactic Acid 1.0 (0.4-2.0) mmol/L Calcium (8.5-10.1) mg/dL Phosphorus (2.6-4.7) mg/dL Magnesium (1.8-2.4) mg/dl Ferritin (8-252) ng/ml Total Bilirubin (0.2-1.0) mg/dL Direct Bilirubin (0.0-0.2) mg/dl Indirect Bilirubin AST (15-37) U/L ALT (14-59) U/L Alkaline Phosphatase (46-116) U/L Lactate Dehydrogenase (81-234) U/L Troponin I (0.00-0.056) ng/mL C-Reactive Protein (<1.0) mg/dL NT-Pro-B Natriuret Pep 213 (0-450) pg/mL Total Protein (6.4-8.2) g/dl Albumin (3.4-5.0) g/dl Globulin gm/dL Albumin/Globulin Ratio (1-2) TSH 3rd Generation (0.358-3.74) uIU/mL Urine Color (Yellow) Urine Appearance (Clear) Urine pH (5.0-8.0) Ur Specific S[place] (1.005-1.030) Urine Protein (Negative) Urine Glucose (UA) (Negative) Urine Ketones (Negative) Urine Occult Blood (Negative) Urine Nitrite (Negative) Urine Bilirubin (Negative) Urine Urobilinogen (0.2-1.0) Ur Leukocyte Esterase (Negative) 05/31/20 05/31/20 05/31/20 Range/Units 16:27 16:27 17:57 WBC (3.98-10.04) K/mm3 RBC (3.98-5.22) M/mm3 Hgb (11.2-15.7) gm/dl Hct (34.1-44.9) % MCV (79.4-94.8) fl MCH (25.6-32.2) pg MCHC (32.2-35.5) g/dl RDW Std Deviation (36.4-46.3) fL Plt Count (182-369) K/mm3 MPV (9.4-12.3) fl Neut % (Auto) (34.0-71.1) % Lymph % (Auto) (19.3-51.7) % Taylor % (Auto) (4.7-12.5) % Eos % (Auto) (0.7-5.8) Baso % (Auto) (0.1-1.2) % Neut # (Auto) (1.56-6.13) K/mm3 Lymph # (Auto) (1.18-3.74) K/mm3 Taylor # (Auto) (0.24-0.36) K/mm3 Eos # (Auto) (0.04-0.36) K/mm3 Baso # (Auto) (0.01-0.08) K/mm3 Manual Slide Review PT (9.7-12.0) SECONDS INR APTT 27.3 (21.7-31.4) SECONDS D-Dimer, Quantitative (0.19-0.50) mg/L Puncture Site Rt radial ABG pH 7.46 H (7.35-7.45) ABG pCO2 39.3 (35.0-45.0) mmHg ABG pO2 75.0 L (80.0-100.0) mmHg ABG HCO3 27.6 H (22.0-26.0) meq/L ABG O2 Saturation 95.5 L (96.0-97.0) % ABG Base Excess 4.0 H (-2-2.0) David Test Positive A-a Gradient 232 mmHg O2 Delivery Device Hiflow nasal cannula Oxygen Flow Rate 50.0 FiO2 50.00 (21.00-100.00) % Sodium (136-145) mEq/L Potassium (3.5-5.1) mEq/L Chloride (98-107) mEq/L Carbon Dioxide (21-32) mEq/L Anion Gap (5-15) BUN (7-18) mg/dL Creatinine (0.55-1.02) mg/dL Est Cr Clr Drug Dosing mL/min Estimated GFR (MDRD) (>60) mL/min BUN/Creatinine Ratio (14-18) Glucose (83-115) mg/dL Lactic Acid (0.4-2.0) mmol/L Calcium (8.5-10.1) mg/dL Phosphorus (2.6-4.7) mg/dL Magnesium 1.8 (1.8-2.4) mg/dl Ferritin (8-252) ng/ml Total Bilirubin (0.2-1.0) mg/dL Direct Bilirubin (0.0-0.2) mg/dl Indirect Bilirubin AST (15-37) U/L ALT (14-59) U/L Alkaline Phosphatase (46-116) U/L Lactate Dehydrogenase (81-234) U/L Troponin I (0.00-0.056) ng/mL C-Reactive Protein (<1.0) mg/dL NT-Pro-B Natriuret Pep (0-450) pg/mL Total Protein (6.4-8.2) g/dl Albumin (3.4-5.0) g/dl Globulin gm/dL Albumin/Globulin Ratio (1-2) TSH 3rd Generation (0.358-3.74) uIU/mL Urine Color (Yellow) Urine Appearance (Clear) Urine pH (5.0-8.0) Ur Specific [place] (1.005-1.030) Urine Protein (Negative) Urine Glucose (UA) (Negative) Urine Ketones (Negative) Urine Occult Blood (Negative) Urine Nitrite (Negative) Urine Bilirubin (Negative) Urine Urobilinogen (0.2-1.0) Ur Leukocyte Esterase (Negative) 05/31/20 06/01/20 06/01/20 Range/Units 21:25 06:00 06:00 WBC 7.65 (3.98-10.04) K/mm3 RBC 4.81 (3.98-5.22) M/mm3 Hgb 13.2 (11.2-15.7) gm/dl Hct 42.4 (34.1-44.9) % MCV 88.1 (79.4-94.8) fl MCH 27.4 (25.6-32.2) pg MCHC 31.1 L (32.2-35.5) g/dl RDW Std Deviation 46.1 (36.4-46.3) fL Plt Count 213 (182-369) K/mm3 MPV 11.2 (9.4-12.3) fl Neut % (Auto) 86.5 H (34.0-71.1) % Lymph % (Auto) 10.2 L (19.3-51.7) % Taylor % (Auto) 2.7 L (4.7-12.5) % Eos % (Auto) 0 L (0.7-5.8) Baso % (Auto) 0.3 (0.1-1.2) % Neut # (Auto) 6.62 H (1.56-6.13) K/mm3 Lymph # (Auto) 0.78 L (1.18-3.74) K/mm3 Taylor # (Auto) 0.21 L (0.24-0.36) K/mm3 Eos # (Auto) 0.00 L (0.04-0.36) K/mm3 Baso # (Auto) 0.02 (0.01-0.08) K/mm3 Manual Slide Review Abnormal smear PT (9.7-12.0) SECONDS INR APTT 27.1 (21.7-31.4) SECONDS D-Dimer, Quantitative 10.65 H (0.19-0.50) mg/L Puncture Site ABG pH (7.35-7.45) ABG pCO2 (35.0-45.0) mmHg ABG pO2 (80.0-100.0) mmHg ABG HCO3 (22.0-26.0) meq/L ABG O2 Saturation (96.0-97.0) % ABG Base Excess (-2-2.0) David Test A-a Gradient mmHg O2 Delivery Device Oxygen Flow Rate FiO2 (21.00-100.00) % Sodium (136-145) mEq/L Potassium (3.5-5.1) mEq/L Chloride (98-107) mEq/L Carbon Dioxide (21-32) mEq/L Anion Gap (5-15) BUN (7-18) mg/dL Creatinine (0.55-1.02) mg/dL Est Cr Clr Drug Dosing mL/min Estimated GFR (MDRD) (>60) mL/min BUN/Creatinine Ratio (14-18) Glucose (83-115) mg/dL Lactic Acid (0.4-2.0) mmol/L Calcium (8.5-10.1) mg/dL Phosphorus (2.6-4.7) mg/dL Magnesium (1.8-2.4) mg/dl Ferritin (8-252) ng/ml Total Bilirubin (0.2-1.0) mg/dL Direct Bilirubin (0.0-0.2) mg/dl Indirect Bilirubin AST (15-37) U/L ALT (14-59) U/L Alkaline Phosphatase (46-116) U/L Lactate Dehydrogenase (81-234) U/L Troponin I (0.00-0.056) ng/mL C-Reactive Protein (<1.0) mg/dL NT-Pro-B Natriuret Pep (0-450) pg/mL Total Protein (6.4-8.2) g/dl Albumin (3.4-5.0) g/dl Globulin gm/dL Albumin/Globulin Ratio (1-2) TSH 3rd Generation (0.358-3.74) uIU/mL Urine Color Yellow (Yellow) Urine Appearance Clear (Clear) Urine pH 6.5 (5.0-8.0) Ur Specific Sula 1.010 (1.005-1.030) Urine Protein Negative (Negative) Urine Glucose (UA) Trace H (Negative) Urine Ketones Negative (Negative) Urine Occult Blood Negative (Negative) Urine Nitrite Negative (Negative) Urine Bilirubin Negative (Negative) Urine Urobilinogen 0.2 (0.2-1.0) Ur Leukocyte Esterase Negative (Negative) 06/01/20 Range/Units 06:00 WBC (3.98-10.04) K/mm3 RBC (3.98-5.22) M/mm3 Hgb (11.2-15.7) gm/dl Hct (34.1-44.9) % MCV (79.4-94.8) fl MCH (25.6-32.2) pg MCHC (32.2-35.5) g/dl RDW Std Deviation (36.4-46.3) fL Plt Count (182-369) K/mm3 MPV (9.4-12.3) fl Neut % (Auto) (34.0-71.1) % Lymph % (Auto) (19.3-51.7) % Taylor % (Auto) (4.7-12.5) % Eos % (Auto) (0.7-5.8) Baso % (Auto) (0.1-1.2) % Neut # (Auto) (1.56-6.13) K/mm3 Lymph # (Auto) (1.18-3.74) K/mm3 Taylor # (Auto) (0.24-0.36) K/mm3 Eos # (Auto) (0.04-0.36) K/mm3 Baso # (Auto) (0.01-0.08) K/mm3 Manual Slide Review PT (9.7-12.0) SECONDS INR APTT (21.7-31.4) SECONDS D-Dimer, Quantitative (0.19-0.50) mg/L Puncture Site ABG pH (7.35-7.45) ABG pCO2 (35.0-45.0) mmHg ABG pO2 (80.0-100.0) mmHg ABG HCO3 (22.0-26.0) meq/L ABG O2 Saturation (96.0-97.0) % ABG Base Excess (-2-2.0) David Test A-a Gradient mmHg O2 Delivery Device Oxygen Flow Rate FiO2 (21.00-100.00) % Sodium 143 (136-145) mEq/L Potassium 4.1 (3.5-5.1) mEq/L Chloride 104 (98-107) mEq/L Carbon Dioxide 32 (21-32) mEq/L Anion Gap 11.1 (5-15) BUN 37 H (7-18) mg/dL Creatinine 0.9 (0.55-1.02) mg/dL Est Cr Clr Drug Dosing 41.40 mL/min Estimated GFR (MDRD) > 60 (>60) mL/min BUN/Creatinine Ratio 41.1 H (14-18) Glucose 144 H (83-115) mg/dL Lactic Acid (0.4-2.0) mmol/L Calcium 8.9 (8.5-10.1) mg/dL Phosphorus 3.8 (2.6-4.7) mg/dL Magnesium 2.6 H (1.8-2.4) mg/dl Ferritin (8-252) ng/ml Total Bilirubin 0.4 (0.2-1.0) mg/dL Direct Bilirubin (0.0-0.2) mg/dl Indirect Bilirubin AST 26 (15-37) U/L ALT 30 (14-59) U/L Alkaline Phosphatase 50 (46-116) U/L Lactate Dehydrogenase (81-234) U/L Troponin I (0.00-0.056) ng/mL C-Reactive Protein 15.9 H* (<1.0) mg/dL NT-Pro-B Natriuret Pep (0-450) pg/mL Total Protein 6.8 (6.4-8.2) g/dl Albumin 2.4 L (3.4-5.0) g/dl Globulin 4.4 gm/dL Albumin/Globulin Ratio 0.6 L (1-2) TSH 3rd Generation (0.358-3.74) uIU/mL Urine Color (Yellow) Urine Appearance (Clear) Urine pH (5.0-8.0) Ur Specific Sula (1.005-1.030) Urine Protein (Negative) Urine Glucose (UA) (Negative) Urine Ketones (Negative) Urine Occult Blood (Negative) Urine Nitrite (Negative) Urine Bilirubin (Negative) Urine Urobilinogen (0.2-1.0) Ur Leukocyte Esterase (Negative) Result Diagrams: 06/01/20 06:00 06/01/20 06:00 Sepsis Event Note - Evaluation Sepsis Screening Result: No Definite Risk - Focused Exam Vital Signs: Vital Signs Temp Temp Pulse Pulse Resp BP BP 06/01/20 12:11 97.7 F 59 L 20 126/74 06/01/20 12:02 06/01/20 12:00 97.7 F 60 20 126/47 L 06/01/20 09:59 06/01/20 08:36 127/85 06/01/20 08:29 97.0 F 61 16 127/85 06/01/20 08:07 06/01/20 08:00 97 F 61 16 127/85 06/01/20 06:18 06/01/20 03:48 98.6 F 62 20 144/66 H Pulse Ox Pulse Ox 06/01/20 12:11 93 L 06/01/20 12:02 94 L 06/01/20 12:00 93 L 06/01/20 09:59 94 L 06/01/20 08:36 06/01/20 08:29 94 L 06/01/20 08:07 90 L 06/01/20 08:00 94 L 06/01/20 06:18 92 L 06/01/20 03:48 92 L - Problem List & Annotations (1) Pneumonia due to COVID-19 virus SNOMED Code(s): 405980650827175660 Code(s): U07.1 - COVID-19; J12.82 - PNEUMONIA DUE TO CORONAVIRUS DISEASE 2018 Status: Acute Current Visit: Yes (2) Respiratory failure with hypoxia SNOMED Code(s): 28670741095871824 Code(s): J96.91 - RESPIRATORY FAILURE, UNSPECIFIED WITH HYPOXIA Status: Acute Current Visit: Yes (3) Iatrogenic hyperthyroidism SNOMED Code(s): 559711463 Code(s): E05.80 - OTHER THYROTOXICOSIS WITHOUT THYROTOXIC CRISIS OR STORM Status: Acute Current Visit: Yes (4) Hypothyroidism associated with surgical procedure SNOMED Code(s): 25784505 Code(s): E89.0 - POSTPROCEDURAL HYPOTHYROIDISM Status: Acute Current Visit: Yes (5) Memory loss of unknown cause SNOMED Code(s): 86121199 Code(s): R41.3 - OTHER AMNESIA Status: Acute Current Visit: Yes (6) Generalized anxiety disorder with panic attacks SNOMED Code(s): 31722021 Code(s): F41.1 - GENERALIZED ANXIETY DISORDER; F41.0 - PANIC DISORDER [EPISODIC PAROXYSMAL ANXIETY] Status: Acute Current Visit: Yes - Problem List Review Problem List Initiated/Reviewed/Updated: Yes - My Orders Last 24 Hours: My Active Orders 05/31/20 14:34 Patient Status [ADT] Routine Cardiac Monitoring [RC] . DIRECTED 05/31/20 14:36 Oxygen Therapy [RC] PRN Up With Assistance [RC] ASDIRECTED VTE/DVT Education [RC] PER UNIT ROUTINE Vital Signs [RC] Q4HR Acetaminophen [TylenoL] 650 mg PO Q4H PRN Resuscitation Status Routine 05/31/20 14:38 RT Incentive Spirometry [RC] ASDIRECTED Isolation [COMM] Stat 05/31/20 14:39 Positioning, Patient [RC] ASDIRECTED 05/31/20 14:41 OT Evaluation and Treatment [CONS] Routine PT Evaluation and Treatment [CONS] Routine 05/31/20 14:42 RT Chest Physiotherapy [RC] ASDIRECTED Isolation [COMM] Routine 05/31/20 15:00 CULTURE BLOOD [BC] Stat cefTRIAXone [Rocephin] 2 gm Sodium Chloride 0.9% [Normal Saline] 100 ml IV Q24H 05/31/20 15:10 CULTURE BLOOD [BC] Routine 05/31/20 15:13 PROCALCITONIN [REF] Stat 05/31/20 Dinner Regular Diet [DIET] 05/31/20 17:05 CTA Chest W WO Contrast [Ang Chest] [CT] Stat 05/31/20 21:00 Famotidine [Pepcid] 20 mg PO BID Melatonin 9 mg PO BEDTIME Montelukast [Singulair] 10 mg PO BEDTIME 05/31/20 21:06 RT Aerosol Therapy [RC] ASDIRECTED Albuterol/Ipratropium [DuoNeb 3.0-0.5 MG/3 ML] 3 ml NEB Q6HRRT PRN 05/31/20 21:34 Consult to Dietary [Consult to Rhia] [CONS] Routine 06/01/20 09:00 Aspirin [Halfprin] 81 mg PO DAILY Cholecalciferol (Vitamin D3) [Vitamin D3] 5,000 unit PO DAILY Enoxaparin [Lovenox] 40 mg SUBCUT Q12H Losartan [Cozaar] 100 mg PO DAILY Zinc Sulfate [Zincate] 220 mg PO DAILY 06/01/20 09:52 CULTURE SPUTUM + SMEAR [RM] Routine 06/01/20 12:00 Tocilizumab [Actemra] 600 mg Sodium Chloride 0.9% [Normal Saline] 70 ml IV ONETIME 06/02/20 05:11 C-REACTIVE PROTEIN [CHEM] AM CBC WITH AUTO DIFF [HEME] AM CMP [COMPREHENSIVE METABOLIC PN,CMP] [CHEM] AM DD [D-DIMER QUANTITATIVE] [COAG] AM MAGNESIUM [CHEM] AM PHOSPHORUS [CHEM] AM 06/02/20 06:00 Levothyroxine 75 mcg PO ACBREAKFAST 06/03/20 05:11 C-REACTIVE PROTEIN [CHEM] AM CBC WITH AUTO DIFF [HEME] AM CMP [COMPREHENSIVE METABOLIC PN,CMP] [CHEM] AM DD [D-DIMER QUANTITATIVE] [COAG] AM MAGNESIUM [CHEM] AM PHOSPHORUS [CHEM] AM - Plan Plan:: 05/31/2020 Assessment 75-year-old female with positive COVID-19 10 days ago and symptoms for 13 days from [place], [place] was transferred here as a direct admission from her clinic. COVID-19 pneumonia Possible right lower lobe pneumonia Respiratory failurehypoxemic * Patient diagnosed 10 days ago with COVID-19 and symptomatic for 13 days. * She has been worsening over the last few days. * D-dimer greater than 35, WBC 11, lactic acid 1.0, LDH 276, ferritin 1389, C- reactive protein 11.6 * CT of the chest was negative for PE * Lower extremities show no swelling or, edema, redness, or tenderness essentially making lower extremity VTE unlikely * Patient is between 10 and 13 days past Covid and has already had 9 days of dexamethasone. * She will not likely benefit from remdesivir. * I would like to give her Actemra, but we do not have any and it is a drop shipment so we will not be able to get it for 4 to 5 days. Iatrogenic hyperthyroidism Surgical removal of the thyroid secondary to thyroid cancer * She is on a combination of C levothyroxine/liothyronine 75 mcg / 25 mcg SR capsule daily * TSH is significantly low at 0.009 * Patient has a history of anxiety Generalized anxiety disorder with panic attacks * Patient is currently hyperthyroid and this would increase her anxiety and panic attacks. Hypokalemia Hypoalbuminemia * Likely secondary to poor oral intake secondary to COVID-19 * Potassium 3.3, albumin 2.7 Acute versus chronic renal disease * Creatinine 1.2 with an estimated GFR of 44 * Some prerenal component could be part of this with BUN of 39 a creatinine of 1.2 making her BUN to creatinine ratio greater than 20 * Known poor oral intake Plan * Admit to medical floor on telemetry and continuous pulse ox * FiO2 to keep SPO2 between 88 and 94% * Rocephin x5 days * Pepcid, melatonin, vitamin D, zinc * Incentive spirometry and Acapella * DuoNeb every 6 hours as needed * Patient required high flow nasal cannula almost immediately once arriving to the floor * Elevated D-dimer prompted starting a bolus of heparin while we are waiting CTA. CT machine was down initially delaying imaging. Once PE was ruled out Heparin was stopped and patient will be switched over to Lovenox for VTE prophylaxis. * Give patient 1 L LR over 10 hours to help with dehydration and possible renal insufficiency. * Patient is out of the window for remdesivir. * Give last dose of dexamethasone. * Decrease thyroid medications to only levothyroxine at 75 mcg daily * Follow Covid labs daily * Hold hydrochlorothiazide but continue other medications as propria. * Dietary consult and encourage oral intake. * CODE STATUS: DNR/DNI * Next of kin Yvrose: 06/01/2020 No significant changes from overnight. Patient continues on high flow nasal cannula with 50 L/min and 55%. Started on Rocephin, and given last dose of dexamethasone yesterday. Actemra will be given today. Respiratory therapy will work on helping her with her atelectasis, start EZ Pap, incentive spirometry and Acapella encouraged. Fortunately, D-dimer did decrease significantly down to 10.6 from greater than 35 yesterday. Continue her on Lovenox 40 mg twice daily. C-reactive protein is elevated at 16. Potassium is normal at 4.1 resolving her hypokalemia. Hypoalbuminemia continues to be problem with her albumin of 2.4. Renal function has improved with some fluids overnight and her creatinine is down to 0.9. Estimated GFR greater than 60 she still has an elevated BUN of 37. No additional fluids since patient is taking orally well. Patient has a poor prognosis.
[2020-06-01] MEDS: cefTRIAXone 2 GM in Sodium Chloride 0.9% 100 ML IV SCH (15:41)
[2020-06-01] MEDS: Melatonin 3 MG Tab PO SCH (21:34)
[2020-06-01] MEDS: Montelukast 10 MG Tab PO SCH (21:35)
[2020-06-02] MEDS: Levothyroxine 75 MCG Tab PO SCH (06:08)
[2020-06-02] MEDS: Enoxaparin 40 MG/0.4 ML Syringe SUBCUT SCH ×2 (08:51→20:23)
[2020-06-02] MEDS: Aspirin 81 MG Tab.EC PO SCH (08:53)
[2020-06-02] MEDS: Losartan 100 MG Tab PO SCH (08:54)
[2020-06-02] MEDS: Zinc Sulfate 220 MG Cap PO SCH (08:56)
[2020-06-02] MEDS: Cholecalciferol (Vitamin D3) 5,000 UNIT Cap PO SCH (08:56)
[2020-06-02] MEDS: Famotidine 20 MG Tab PO SCH ×2 (08:56→20:23)
--- NOTE | 2020-06-02 09:19 | CT ---
CT chest Technique: Multiple axial sections were obtained from above the lung apices inferiorly through the lung bases. Intravenous contrast was utilized. Study has been performed as a pulmonary angiogram protocol. Comparison: No previous study. Findings: Cystic lesion is seen off the posterior right lobe of the liver which shows very minimal wall calcification. This finding measures approximately 6.1 cm in size. Slight fatty infiltration is seen around the intrahepatic fissure. Additional cyst is noted more superiorly within the right lobe of the liver measuring approximately 2.9 cm. Vague low density lesion containing a small peripheral calcification is seen within the right lobe of the liver which most likely represents an additional cyst measuring approximately 3.6 cm. No other acute abnormality is appreciated. Heart is mildly enlarged. Mild coronary artery calcification is noted. Thoracic aorta shows atherosclerotic change without aneurysm. Small scattered lymph nodes are seen which are believed to be within normal limits. Pulmonary arteries show no filling defects of pulmonary embolism. Scattered areas of increased density are seen within both lungs which are most prominent within both lung bases. Some of this represents atelectasis with other findings representing either chronic fibrosis or pneumonia. Bone window settings were reviewed which show no acute osseous finding. Impression: 1. Numerous cysts within the liver, some of which are complicated but are most likely benign. Nothing is definitely appreciated to indicate malignancy at this time. 2. Scattered parenchymal densities within both sides of the chest which could represent some atelectasis. Other findings could be chronic or due to COVID pneumonia. 3. No findings of pulmonary embolism. Diagnostic code #3 I agree with preliminary report from [facility], finalized on 05/31/20, 8:20 PM [employer]
--- NOTE | 2020-06-02 10:57 | PCM.PN ---
- General Info Date of Service: 06/02/20 Admission Dx/Problem (Free Text): Admission Diagnosis/Problem Admission Diagnosis/Problem Pneumonia, organism unspecified Subjective Update: Randa states she continues to feel better. She denies any fever, chills and her shortness of breath is much better. Still has a mild cough. Appetite is excellent. Functional Status: Reports: Pain Controlled - Review of Systems General: Reports: No Symptoms HEENT: Reports: No Symptoms Pulmonary: Reports: Shortness of Breath, Cough Cardiovascular: Reports: No Symptoms Gastrointestinal: Reports: No Symptoms Neurological: Reports: No Symptoms Psychiatric: Reports: No Symptoms - Patient Data Vitals - Most Recent: Last Vital Signs Temp 97.9 F 06/02/20 08:51 Pulse 61 06/02/20 08:51 Resp 18 06/02/20 08:51 BP 144/74 H 06/02/20 08:54 Pulse Ox 91 L 06/02/20 08:51 Weight - Most Recent: 169 lb 4.8 oz I&O - Last 24 Hours: Intake & Output 06/01/20 06/02/20 06/02/20 22:59 06:59 14:59 Intake Total 1410 600 Output Total 875 Balance 1410 -275 Lab Results Last 24 Hours: Laboratory Results - last 24 hr 06/02/20 06/02/20 06/02/20 Range/Units 05:47 05:47 05:47 WBC 7.71 (3.98-10.04) K/mm3 RBC 4.48 (3.98-5.22) M/mm3 Hgb 12.5 (11.2-15.7) gm/dl Hct 40.0 (34.1-44.9) % MCV 89.3 (79.4-94.8) fl MCH 27.9 (25.6-32.2) pg MCHC 31.3 L (32.2-35.5) g/dl RDW Std Deviation 46.6 H (36.4-46.3) fL Plt Count 221 (182-369) K/mm3 MPV 11.2 (9.4-12.3) fl Neut % (Auto) 76.1 H (34.0-71.1) % Lymph % (Auto) 15.6 L (19.3-51.7) % [place] % (Auto) 5.7 (4.7-12.5) % Eos % (Auto) 1.7 (0.7-5.8) Baso % (Auto) 0.3 (0.1-1.2) % Neut # (Auto) 5.87 (1.56-6.13) K/mm3 Lymph # (Auto) 1.20 (1.18-3.74) K/mm3 [place] # (Auto) 0.44 H (0.24-0.36) K/mm3 Eos # (Auto) 0.13 (0.04-0.36) K/mm3 Baso # (Auto) 0.02 (0.01-0.08) K/mm3 Manual Slide Review Normal smear D-Dimer, Quantitative 2.23 H (0.19-0.50) mg/L Sodium 142 (136-145) mEq/L Potassium 3.9 (3.5-5.1) mEq/L Chloride 106 (98-107) mEq/L Carbon Dioxide 29 (21-32) mEq/L Anion Gap 10.9 (5-15) BUN 28 H (7-18) mg/dL Creatinine 0.8 (0.55-1.02) mg/dL Est Cr Clr Drug Dosing 46.58 mL/min Estimated GFR (MDRD) > 60 (>60) mL/min BUN/Creatinine Ratio 35.0 H (14-18) Glucose 96 (83-115) mg/dL Calcium 8.4 L (8.5-10.1) mg/dL Phosphorus 2.0 L (2.6-4.7) mg/dL Magnesium 2.2 (1.8-2.4) mg/dl Total Bilirubin 0.4 (0.2-1.0) mg/dL AST 23 (15-37) U/L ALT 27 (14-59) U/L Alkaline Phosphatase 44 L (46-116) U/L C-Reactive Protein 9.3 H* (<1.0) mg/dL Total Protein 6.3 L (6.4-8.2) g/dl Albumin 2.3 L (3.4-5.0) g/dl Globulin 4.0 gm/dL Albumin/Globulin Ratio 0.6 L (1-2) Leonides Results Last 24 Hours: Microbiology 06/01/20 09:52 Gram Stain - Final Sputum - Expectorated Sputum Culture - Preliminary 05/31/20 15:10 Aerobic Blood Culture - Preliminary Blood NO GROWTH AFTER 1 DAY Anaerobic Blood Culture - Preliminary NO GROWTH AFTER 1 DAY 05/31/20 15:00 Aerobic Blood Culture - Preliminary Blood NO GROWTH AFTER 1 DAY Anaerobic Blood Culture - Preliminary NO GROWTH AFTER 1 DAY Med Orders - Current: Current Medications Acetaminophen (Tylenol) 650 mg PO Q4H PRN PRN Reason: Pain (Mild 1-3)/fever Last Admin: 05/31/20 16:42 Dose: 650 mg Documented by: Albuterol/Ipratropium (Duoneb 3.0-0.5 Mg/3 Ml) 3 ml NEB Q6HRRT PRN PRN Reason: Dyspnea Aspirin (Halfprin) 81 mg PO DAILY [facility] Last Admin: 06/02/20 08:53 Dose: 81 mg Documented by: Cholecalciferol (Vitamin D3) 5,000 unit PO DAILY [facility] Last Admin: 06/02/20 08:56 Dose: 5,000 unit Documented by: Enoxaparin Sodium (Lovenox) 40 mg SUBCUT Q12H [facility] Last Admin: 06/02/20 08:51 Dose: 40 mg Documented by: Famotidine (Pepcid) 20 mg PO BID [facility] Last Admin: 06/02/20 08:56 Dose: 20 mg Documented by: Ceftriaxone Sodium 2 gm/ (Sodium Chloride) 100 mls @ 200 mls/hr IV Q24H [facility] Stop: 06/04/20 15:29 Last Admin: 06/01/20 15:41 Dose: 200 mls/hr Documented by: Tocilizumab 300 mg/ Sodium (Chloride) 100 mls @ 100 mls/hr IV ONETIME ONE Stop: 06/02/20 13:59 Levothyroxine Sodium (Levothyroxine) 75 mcg PO ACBREAKFAST [facility] Last Admin: 06/02/20 06:08 Dose: 75 mcg Documented by: Losartan Potassium (Cozaar) 100 mg PO DAILY [facility] Last Admin: 06/02/20 08:54 Dose: 100 mg Documented by: Melatonin (Melatonin) 9 mg PO BEDTIME [facility] Last Admin: 06/01/20 21:34 Dose: 9 mg Documented by: Montelukast Sodium (Singulair) 10 mg PO BEDTIME [facility] Last Admin: 06/01/20 21:35 Dose: 10 mg Documented by: Zinc Sulfate (Zincate) 220 mg PO DAILY [facility] Last Admin: 06/02/20 08:56 Dose: 220 mg Documented by: Discontinued Medications Dexamethasone (Dexamethasone) 6 mg PO ONETIME ONE Stop: 05/31/20 15:01 Last Admin: 05/31/20 16:41 Dose: 6 mg Documented by: Enoxaparin Sodium (Lovenox) 40 mg SUBCUT DAILY [facility] Heparin Sodium (Porcine) (Heparin Sodium) 5,000 units IVPUSH .BOLUS ONE Stop: 05/31/20 17:31 Last Admin: 05/31/20 17:45 Dose: 5,000 units Documented by: Heparin Sodium/Dextrose (Heparin 25,000 Units In D5w 500 Ml) 25,000 units in 500 mls @ 26 mls/hr IV TITRATE BRIDGER; Protocol Last Admin: 05/31/20 17:45 Dose: 1,300 units/hr, 26 mls/hr Documented by: Magnesium Sulfate 2 gm/ Premix 50 mls @ 25 mls/hr IV ONETIME ONE Stop: 05/31/20 19:30 Last Admin: 05/31/20 18:14 Dose: 25 mls/hr Documented by: Lactated Ringer's (Ringers, Lactated) 1,000 mls @ 100 mls/hr IV ASDIRECTED BRIDGER Stop: 06/01/20 07:14 Last Admin: 06/01/20 00:21 Dose: 100 mls/hr Documented by: Tocilizumab 600 mg/ Sodium (Chloride) 100 mls @ 100 mls/hr IV ONETIME BRIDGER Tocilizumab 600 mg/ Sodium (Chloride) 100 mls @ 100 mls/hr IV ONETIME ONE Stop: 06/01/20 14:29 Last Admin: 06/01/20 13:31 Dose: 100 mls/hr Documented by: Iopamidol (Isovue-370 (76%)) 100 ml IVPUSH ONETIME ONE Stop: 05/31/20 18:20 Last Admin: 05/31/20 18:51 Dose: 100 ml Documented by: Potassium Chloride (Klor-Con M20) 40 meq PO ONETIME ONE Stop: 05/31/20 17:16 Last Admin: 05/31/20 17:46 Dose: 40 meq Documented by: Zinc Sulfate (Zincate) 220 mg PO ONETIME ONE Stop: 06/01/20 09:01 Last Admin: 06/01/20 09:23 Dose: 220 mg Documented by: - Exam Quality Assessment: Supplemental Oxygen General: Alert, Oriented HEENT: Pupils Equal, Mucous Membr. Moist/[place] Neck: Supple Lungs: Normal Respiratory Effort, Crackles (Bibasilar) Cardiovascular: Regular Rate, Regular Rhythm GI/Abdominal Exam: Normal Bowel Sounds, Soft, Non-Tender, No Organomegaly, No Distention, No Abnormal Bruit, No Mass Extremities: Normal Inspection, Normal Range of Motion, Non-Tender, No Pedal Edema, Normal Capillary Refill Skin: Warm, Dry, Intact Neurological: No New Focal Deficit Psy/Mental Status: Alert, Normal Affect, Normal Mood - Patient Data Lab Results Last 24 hrs: Laboratory Results - last 24 hr 06/02/20 06/02/20 06/02/20 Range/Units 05:47 05:47 05:47 WBC 7.71 (3.98-10.04) K/mm3 RBC 4.48 (3.98-5.22) M/mm3 Hgb 12.5 (11.2-15.7) gm/dl Hct 40.0 (34.1-44.9) % MCV 89.3 (79.4-94.8) fl MCH 27.9 (25.6-32.2) pg MCHC 31.3 L (32.2-35.5) g/dl RDW Std Deviation 46.6 H (36.4-46.3) fL Plt Count 221 (182-369) K/mm3 MPV 11.2 (9.4-12.3) fl Neut % (Auto) 76.1 H (34.0-71.1) % Lymph % (Auto) 15.6 L (19.3-51.7) % [place] % (Auto) 5.7 (4.7-12.5) % Eos % (Auto) 1.7 (0.7-5.8) Baso % (Auto) 0.3 (0.1-1.2) % Neut # (Auto) 5.87 (1.56-6.13) K/mm3 Lymph # (Auto) 1.20 (1.18-3.74) K/mm3 [place] # (Auto) 0.44 H (0.24-0.36) K/mm3 Eos # (Auto) 0.13 (0.04-0.36) K/mm3 Baso # (Auto) 0.02 (0.01-0.08) K/mm3 Manual Slide Review Normal smear D-Dimer, Quantitative 2.23 H (0.19-0.50) mg/L Sodium 142 (136-145) mEq/L Potassium 3.9 (3.5-5.1) mEq/L Chloride 106 (98-107) mEq/L Carbon Dioxide 29 (21-32) mEq/L Anion Gap 10.9 (5-15) BUN 28 H (7-18) mg/dL Creatinine 0.8 (0.55-1.02) mg/dL Est Cr Clr Drug Dosing 46.58 mL/min Estimated GFR (MDRD) > 60 (>60) mL/min BUN/Creatinine Ratio 35.0 H (14-18) Glucose 96 (83-115) mg/dL Calcium 8.4 L (8.5-10.1) mg/dL Phosphorus 2.0 L (2.6-4.7) mg/dL Magnesium 2.2 (1.8-2.4) mg/dl Total Bilirubin 0.4 (0.2-1.0) mg/dL AST 23 (15-37) U/L ALT 27 (14-59) U/L Alkaline Phosphatase 44 L (46-116) U/L C-Reactive Protein 9.3 H* (<1.0) mg/dL Total Protein 6.3 L (6.4-8.2) g/dl Albumin 2.3 L (3.4-5.0) g/dl Globulin 4.0 gm/dL Albumin/Globulin Ratio 0.6 L (1-2) Result Diagrams: 06/02/20 05:47 06/02/20 05:47 Leonides Results Last 24 hrs: Microbiology 06/01/20 09:52 Gram Stain - Final Sputum - Expectorated Sputum Culture - Preliminary 05/31/20 15:10 Aerobic Blood Culture - Preliminary Blood NO GROWTH AFTER 1 DAY Anaerobic Blood Culture - Preliminary NO GROWTH AFTER 1 DAY 05/31/20 15:00 Aerobic Blood Culture - Preliminary Blood NO GROWTH AFTER 1 DAY Anaerobic Blood Culture - Preliminary NO GROWTH AFTER 1 DAY Imaging Impressions Last 24 hrs: Finalized CT angiogram of the chest 1. Numerous cysts within the liver, some of which are complicated but are most likely benign. Nothing is definitely appreciated to indicate malignancy at this time. 2. Scattered parenchymal densities within both sides of the chest which could represent some atelectasis. Other findings could be chronic or due to COVID-19 pneumonia. 3. No findings of pulmonary embolism. Sepsis Event Note - Evaluation Sepsis Screening Result: No Definite Risk - Focused Exam Vital Signs: Vital Signs Temp Temp Pulse Pulse Resp BP BP 06/02/20 08:54 144/74 H 06/02/20 08:51 97.9 F 61 18 144/74 H 06/02/20 08:26 06/02/20 08:00 97.9 F 61 18 144/74 H 06/02/20 06:26 06/02/20 04:10 06/02/20 04:08 98.2 F 63 13 145/87 H Pulse Ox Pulse Ox 06/02/20 08:54 06/02/20 08:51 91 L 06/02/20 08:26 93 L 06/02/20 08:00 91 L 06/02/20 06:26 92 L 06/02/20 04:10 92 L 06/02/20 04:08 89 L - Problem List & Annotations (1) Pneumonia due to COVID-19 virus SNOMED Code(s): 594891154512948432 Code(s): U07.1 - COVID-19; J12.82 - PNEUMONIA DUE TO CORONAVIRUS DISEASE 2018 Status: Acute Current Visit: Yes (2) Respiratory failure with hypoxia SNOMED Code(s): 41129716650685033 Code(s): J96.91 - RESPIRATORY FAILURE, UNSPECIFIED WITH HYPOXIA Status: Acute Current Visit: Yes (3) Iatrogenic hyperthyroidism SNOMED Code(s): 427185540 Code(s): E05.80 - OTHER THYROTOXICOSIS WITHOUT THYROTOXIC CRISIS OR STORM Status: Acute Current Visit: Yes (4) Hypothyroidism associated with surgical procedure SNOMED Code(s): 90485763 Code(s): E89.0 - POSTPROCEDURAL HYPOTHYROIDISM Status: Acute Current Visit: Yes (5) Memory loss of unknown cause SNOMED Code(s): 46066393 Code(s): R41.3 - OTHER AMNESIA Status: Acute Current Visit: Yes (6) Generalized anxiety disorder with panic attacks SNOMED Code(s): 18278664 Code(s): F41.1 - GENERALIZED ANXIETY DISORDER; F41.0 - PANIC DISORDER [EPISODIC PAROXYSMAL ANXIETY] Status: Acute Current Visit: Yes - Problem List Review Problem List Initiated/Reviewed/Updated: Yes - My Orders Last 24 Hours: My Active Orders 06/02/20 06:00 Levothyroxine 75 mcg PO ACBREAKFAST 06/02/20 13:00 Tocilizumab [Actemra] 300 mg Sodium Chloride 0.9% [Normal Saline] 85 ml IV ONE TIME 06/03/20 05:11 C-REACTIVE PROTEIN [CHEM] AM CBC WITH AUTO DIFF [HEME] AM CMP [COMPREHENSIVE METABOLIC PN,CMP] [CHEM] AM DD [D-DIMER QUANTITATIVE] [COAG] AM MAGNESIUM [CHEM] AM PHOSPHORUS [CHEM] AM - Plan Plan:: 05/31/2020 Assessment 75-year-old female with positive COVID-19 10 days ago and symptoms for 13 days from [place], [place] was transferred here as a direct admission from her clinic. COVID-19 pneumonia Possible right lower lobe pneumonia Respiratory failurehypoxemic * Patient diagnosed 10 days ago with COVID-19 and symptomatic for 13 days. * She has been worsening over the last few days. * D-dimer greater than 35, WBC 11, lactic acid 1.0, LDH 276, ferritin 1389, C- reactive protein 11.6 * CT of the chest was negative for PE * Lower extremities show no swelling or, edema, redness, or tenderness essential ly making lower extremity VTE unlikely * Patient is between 10 and 13 days past Covid and has already had 9 days of dexamethasone. * She will not likely benefit from remdesivir. * I would like to give her Actemra, but we do not have any and it is a drop shipment so we will not be able to get it for 4 to 5 days. Iatrogenic hyperthyroidism Surgical removal of the thyroid secondary to thyroid cancer * She is on a combination of C levothyroxine/liothyronine 75 mcg / 25 mcg SR ca psule daily * TSH is significantly low at 0.009 * Patient has a history of anxiety Generalized anxiety disorder with panic attacks * Patient is currently hyperthyroid and this would increase her anxiety and panic attacks. Hypokalemia Hypoalbuminemia * Likely secondary to poor oral intake secondary to COVID-19 * Potassium 3.3, albumin 2.7 Acute versus chronic renal disease * Creatinine 1.2 with an estimated GFR of 44 * Some prerenal component could be part of this with BUN of 39 a creatinine of 1.2 making her BUN to creatinine ratio greater than 20 * Known poor oral intake Plan * Admit to medical floor on telemetry and continuous pulse ox * FiO2 to keep SPO2 between 88 and 94% * Rocephin x5 days * Pepcid, melatonin, vitamin D, zinc * Incentive spirometry and Acapella * DuoNeb every 6 hours as needed * Patient required high flow nasal cannula almost immediately once arriving to the floor * Elevated D-dimer prompted starting a bolus of heparin while we are waiting CTA. CT machine was down initially delaying imaging. Once PE was ruled out Heparin was stopped and patient will be switched over to Lovenox for VTE prophylaxis. * Give patient 1 L LR over 10 hours to help with dehydration and possible renal insufficiency. * Patient is out of the window for remdesivir. * Give last dose of dexamethasone. * Decrease thyroid medications to only levothyroxine at 75 mcg daily * Follow Covid labs daily * Hold hydrochlorothiazide but continue other medications as propria. * Dietary consult and encourage oral intake. * CODE STATUS: DNR/DNI * Next of kin Yvrose: 06/01/2020 No significant changes from overnight. Patient continues on high flow nasal cannula with 50 L/min and 55%. Started on Rocephin, and given last dose of dexamethasone yesterday. Actemra will be given today. Respiratory therapy will work on helping her with her atelectasis, start EZ Pap, incentive spirometry and Acapella encouraged. Fortunately, D-dimer did decrease significantly down to 10.6 from greater than 35 yesterday. Continue her on Lovenox 40 mg twice daily. C-reactive protein is elevated at 16. Potassium is normal at 4.1 resolving her hypokalemia. Hypoalbuminemia continues to be problem with her albumin of 2.4. Renal function has improved with some fluids overnight and her creatinine is down to 0.9. Estimated GFR greater than 60 she still has an elevated BUN of 37. No additional fluids since patient is taking orally well. Patient has a poor prognosis. 06/02/2020 Patient continues to improve overnight. She is down to 40 L via high flow nasal cannula. Appetite remains good although she continues to have dropping of her albumin. It is down to 2.3 this is consistent with COVID-19 infection. Reading of the CTA of the chest found several liver cysts some of the uncomplicated but none of them appear malignant at this time. Patient states that in the past she has had a full work-up for her liver cysts. Labs continue to improve. Her D-di morris is down to 2.23. This is a significant improvement from admission when it was greater than 35. C-reactive protein is also down to 9.3. Electrolytes are normal. Patient did get 1 dose of Actemra yesterday and were going to give her 300 mg today. This is to decrease any more cytokine storm and inflammation. We have held her hydrochlorothiazide since she has been here and her blood pressures are pretty stable in the low 140s systolic. Plan will be to continue current treatment. Continue to wean off of high flow nasal cannula. Continue Acapella and incentive spirometry. She is on day 3 of Rocephin. Repeat Covid labs in the morning.
[2020-06-02] MEDS: cefTRIAXone 2 GM in Sodium Chloride 0.9% 100 ML IV SCH (14:04)
[2020-06-02] MEDS: Montelukast 10 MG Tab PO SCH (20:23)
[2020-06-02] MEDS: Melatonin 3 MG Tab PO SCH (20:23)
[2020-06-03] MEDS: Levothyroxine 75 MCG Tab PO SCH (06:48)
--- NOTE | 2020-06-03 07:54 | PCM.PN ---
- General Info Date of Service: 06/03/20 Admission Dx/Problem (Free Text): Admission Diagnosis/Problem Admission Diagnosis/Problem Pneumonia, organism unspecified Subjective Update: She states she feels guzman good. No complaints this AM. However she desaturated last night in the 80s requiring increased FiO2 to 40%. She is eating and drinking fine. She is afebrile w/o leukocytosis. Functional Status: Reports: Pain Controlled, Tolerating Diet, Ambulating, Urinating. Denies: New Symptoms - Review of Systems General: Denies: Fever, Chills HEENT: Denies: Dysphasia, Headaches Pulmonary: Reports: Cough. Denies: Shortness of Breath, Pleuritic Chest Pain Cardiovascular: Denies: Chest Pain Gastrointestinal: Denies: Abdominal Pain, Nausea, Vomiting Genitourinary: Denies: Dysuria, Burning Musculoskeletal: Denies: Joint Pain Skin: Denies: Cyanosis, Jaundice, Mottled, Pallor Neurological: Denies: Confusion Psychiatric: Denies: Depression, Anxiety - Patient Data Vitals - Most Recent: Last Vital Signs Temp 36.8 C 06/03/20 04:40 Pulse 76 06/03/20 04:40 Resp 14 06/03/20 04:40 BP 138/92 H 06/03/20 04:40 Pulse Ox 92 L 06/03/20 04:00 Weight - Most Recent: 76.884 kg I&O - Last 24 Hours: Intake & Output 06/02/20 06/03/20 06/03/20 22:59 06:59 14:59 Intake Total 600 450 Output Total 320 850 Balance 280 -400 Lab Results Last 24 Hours: Laboratory Results - last 24 hr 05/31/20 06/03/20 06/03/20 Range/Units 15:13 05:51 05:51 WBC 5.30 (3.98-10.04) K/mm3 RBC 4.63 (3.98-5.22) M/mm3 Hgb 12.9 (11.2-15.7) gm/dl Hct 41.6 (34.1-44.9) % MCV 89.8 (79.4-94.8) fl MCH 27.9 (25.6-32.2) pg MCHC 31.0 L (32.2-35.5) g/dl RDW Std Deviation 47.0 H (36.4-46.3) fL Plt Count 237 (182-369) K/mm3 MPV 10.8 (9.4-12.3) fl Neut % (Auto) 51.1 (34.0-71.1) % Lymph % (Auto) 33.0 (19.3-51.7) % [place] % (Auto) 7.4 (4.7-12.5) % Eos % (Auto) 7.0 H (0.7-5.8) Baso % (Auto) 0.4 (0.1-1.2) % Neut # (Auto) 2.71 (1.56-6.13) K/mm3 Lymph # (Auto) 1.75 (1.18-3.74) K/mm3 [place] # (Auto) 0.39 H (0.24-0.36) K/mm3 Eos # (Auto) 0.37 H (0.04-0.36) K/mm3 Baso # (Auto) 0.02 (0.01-0.08) K/mm3 Manual Slide Review Normal smear D-Dimer, Quantitative 2.78 H (0.19-0.50) mg/L Sodium (136-145) mEq/L Potassium (3.5-5.1) mEq/L Chloride (98-107) mEq/L Carbon Dioxide (21-32) mEq/L Anion Gap (5-15) BUN (7-18) mg/dL Creatinine (0.55-1.02) mg/dL Est Cr Clr Drug Dosing mL/min Estimated GFR (MDRD) (>60) mL/min BUN/Creatinine Ratio (14-18) Glucose (83-115) mg/dL Calcium (8.5-10.1) mg/dL Phosphorus (2.6-4.7) mg/dL Magnesium (1.8-2.4) mg/dl Total Bilirubin (0.2-1.0) mg/dL AST (15-37) U/L ALT (14-59) U/L Alkaline Phosphatase (46-116) U/L C-Reactive Protein (<1.0) mg/dL Total Protein (6.4-8.2) g/dl Albumin (3.4-5.0) g/dl Globulin gm/dL Albumin/Globulin Ratio (1-2) Procalcitonin 0.25 H ng/mL 06/03/20 Range/Units 05:51 WBC (3.98-10.04) K/mm3 RBC (3.98-5.22) M/mm3 Hgb (11.2-15.7) gm/dl Hct (34.1-44.9) % MCV (79.4-94.8) fl MCH (25.6-32.2) pg MCHC (32.2-35.5) g/dl RDW Std Deviation (36.4-46.3) fL Plt Count (182-369) K/mm3 MPV (9.4-12.3) fl Neut % (Auto) (34.0-71.1) % Lymph % (Auto) (19.3-51.7) % [place] % (Auto) (4.7-12.5) % Eos % (Auto) (0.7-5.8) Baso % (Auto) (0.1-1.2) % Neut # (Auto) (1.56-6.13) K/mm3 Lymph # (Auto) (1.18-3.74) K/mm3 [place] # (Auto) (0.24-0.36) K/mm3 Eos # (Auto) (0.04-0.36) K/mm3 Baso # (Auto) (0.01-0.08) K/mm3 Manual Slide Review D-Dimer, Quantitative (0.19-0.50) mg/L Sodium 147 H (136-145) mEq/L Potassium 4.2 (3.5-5.1) mEq/L Chloride 109 H (98-107) mEq/L Carbon Dioxide 28 (21-32) mEq/L Anion Gap 14.2 (5-15) BUN 22 H (7-18) mg/dL Creatinine 0.8 (0.55-1.02) mg/dL Est Cr Clr Drug Dosing 46.58 mL/min Estimated GFR (MDRD) > 60 (>60) mL/min BUN/Creatinine Ratio 27.5 H (14-18) Glucose 95 (83-115) mg/dL Calcium 8.3 L (8.5-10.1) mg/dL Phosphorus 2.1 L (2.6-4.7) mg/dL Magnesium 2.0 (1.8-2.4) mg/dl Total Bilirubin 0.4 (0.2-1.0) mg/dL AST 23 (15-37) U/L ALT 29 (14-59) U/L Alkaline Phosphatase 42 L (46-116) U/L C-Reactive Protein 4.5 H* (<1.0) mg/dL Total Protein 6.3 L (6.4-8.2) g/dl Albumin 2.4 L (3.4-5.0) g/dl Globulin 3.9 gm/dL Albumin/Globulin Ratio 0.6 L (1-2) Procalcitonin ng/mL [facility]ides Results Last 24 Hours: Microbiology 06/01/20 09:52 Gram Stain - Final Sputum - Expectorated 05/31/20 15:10 Aerobic Blood Culture - Preliminary Blood NO GROWTH AFTER 2 DAYS Anaerobic Blood Culture - Preliminary NO GROWTH AFTER 2 DAYS 05/31/20 15:00 Aerobic Blood Culture - Preliminary Blood NO GROWTH AFTER 2 DAYS Anaerobic Blood Culture - Preliminary NO GROWTH AFTER 2 DAYS Med Orders - Current: Current Medications Acetaminophen (Tylenol) 650 mg PO Q4H PRN PRN Reason: Pain (Mild 1-3)/fever Last Admin: 05/31/20 16:42 Dose: 650 mg Documented by: Albuterol/Ipratropium (Duoneb 3.0-0.5 Mg/3 Ml) 3 ml NEB Q6HRRT PRN PRN Reason: Dyspnea Aspirin (Halfprin) 81 mg PO DAILY [facility] Last Admin: 06/02/20 08:53 Dose: 81 mg Documented by: Cholecalciferol (Vitamin D3) 5,000 unit PO DAILY [facility] Last Admin: 06/02/20 08:56 Dose: 5,000 unit Documented by: Enoxaparin Sodium (Lovenox) 40 mg SUBCUT Q12H [facility] Last Admin: 06/02/20 20:23 Dose: 40 mg Documented by: Famotidine (Pepcid) 20 mg PO BID [facility] Last Admin: 06/02/20 20:23 Dose: 20 mg Documented by: Ceftriaxone Sodium 2 gm/ (Sodium Chloride) 100 mls @ 200 mls/hr IV Q24H [facility] Stop: 06/04/20 15:29 Last Admin: 06/02/20 14:04 Dose: 200 mls/hr Documented by: Levothyroxine Sodium (Levothyroxine) 75 mcg PO ACBREAKFAST [facility] Last Admin: 06/03/20 06:48 Dose: 75 mcg Documented by: Losartan Potassium (Cozaar) 100 mg PO DAILY [facility] Last Admin: 06/02/20 08:54 Dose: 100 mg Documented by: Melatonin (Melatonin) 9 mg PO BEDTIME [facility] Last Admin: 06/02/20 20:23 Dose: 9 mg Documented by: Montelukast Sodium (Singulair) 10 mg PO BEDTIME [facility] Last Admin: 06/02/20 20:23 Dose: 10 mg Documented by: Zinc Sulfate (Zincate) 220 mg PO DAILY [facility] Last Admin: 06/02/20 08:56 Dose: 220 mg Documented by: Discontinued Medications Dexamethasone (Dexamethasone) 6 mg PO ONETIME ONE Stop: 05/31/20 15:01 Last Admin: 05/31/20 16:41 Dose: 6 mg Documented by: Enoxaparin Sodium (Lovenox) 40 mg SUBCUT DAILY [facility] Heparin Sodium (Porcine) (Heparin Sodium) 5,000 units IVPUSH .BOLUS ONE Stop: 05/31/20 17:31 Last Admin: 05/31/20 17:45 Dose: 5,000 units Documented by: Heparin Sodium/Dextrose (Heparin 25,000 Units In D5w 500 Ml) 25,000 units in 500 mls @ 26 mls/hr IV TITRATE [facility]; Protocol Last Admin: 05/31/20 17:45 Dose: 1,300 units/hr, 26 mls/hr Documented by: Magnesium Sulfate 2 gm/ Premix 50 mls @ 25 mls/hr IV ONETIME ONE Stop: 05/31/20 19:30 Last Admin: 05/31/20 18:14 Dose: 25 mls/hr Documented by: Lactated Ringer's (Ringers, Lactated) 1,000 mls @ 100 mls/hr IV ASDIRECTED [facility] Stop: 06/01/20 07:14 Last Admin: 06/01/20 00:21 Dose: 100 mls/hr Documented by: Tocilizumab 600 mg/ Sodium (Chloride) 100 mls @ 100 mls/hr IV ONETIME [facility] Tocilizumab 600 mg/ Sodium (Chloride) 100 mls @ 100 mls/hr IV ONETIME ONE Stop: 06/01/20 14:29 Last Admin: 06/01/20 13:31 Dose: 100 mls/hr Documented by: Tocilizumab 300 mg/ Sodium (Chloride) 100 mls @ 100 mls/hr IV ONETIME ONE Stop: 06/02/20 13:59 Last Admin: 06/02/20 12:59 Dose: 100 mls/hr Documented by: Iopamidol (Isovue-370 (76%)) 100 ml IVPUSH ONETIME ONE Stop: 05/31/20 18:20 Last Admin: 05/31/20 18:51 Dose: 100 ml Documented by: Potassium Chloride (Klor-Con M20) 40 meq PO ONETIME ONE Stop: 05/31/20 17:16 Last Admin: 05/31/20 17:46 Dose: 40 meq Documented by: Zinc Sulfate (Zincate) 220 mg PO ONETIME ONE Stop: 06/01/20 09:01 Last Admin: 06/01/20 09:23 Dose: 220 mg Documented by: - Exam Quality Assessment: Supplemental Oxygen General: Alert, Oriented, Cooperative, No Acute Distress HEENT: Pupils Equal, Pupils Reactive, EOMI, Mucous Membr. Moist/[place] Lungs: Normal Respiratory Effort, Decreased Breath Sounds Cardiovascular: Regular Rate, Regular Rhythm GI/Abdominal Exam: Normal Bowel Sounds, Soft, Non-Tender, No Organomegaly, No Distention, No Abnormal Bruit, No Mass, Pelvis Stable (Female) Exam: Deferred Back Exam: Normal Inspection, Decreased Range of Motion Extremities: Normal Inspection, Normal Range of Motion, Non-Tender, No Pedal Edema, Normal Capillary Refill Peripheral Pulses: 2+: Dorsalis Pedis (L), Dorsalis Pedis (R) Skin: Warm, Dry, Intact Neurological: No New Focal Deficit Psy/Mental Status: Alert, Normal Affect, Normal Mood - Patient Data Lab Results Last 24 hrs: Laboratory Results - last 24 hr 05/31/20 06/03/20 06/03/20 Range/Units 15:13 05:51 05:51 WBC 5.30 (3.98-10.04) K/mm3 RBC 4.63 (3.98-5.22) M/mm3 Hgb 12.9 (11.2-15.7) gm/dl Hct 41.6 (34.1-44.9) % MCV 89.8 (79.4-94.8) fl MCH 27.9 (25.6-32.2) pg MCHC 31.0 L (32.2-35.5) g/dl RDW Std Deviation 47.0 H (36.4-46.3) fL Plt Count 237 (182-369) K/mm3 MPV 10.8 (9.4-12.3) fl Neut % (Auto) 51.1 (34.0-71.1) % Lymph % (Auto) 33.0 (19.3-51.7) % [place] % (Auto) 7.4 (4.7-12.5) % Eos % (Auto) 7.0 H (0.7-5.8) Baso % (Auto) 0.4 (0.1-1.2) % Neut # (Auto) 2.71 (1.56-6.13) K/mm3 Lymph # (Auto) 1.75 (1.18-3.74) K/mm3 [place] # (Auto) 0.39 H (0.24-0.36) K/mm3 Eos # (Auto) 0.37 H (0.04-0.36) K/mm3 Baso # (Auto) 0.02 (0.01-0.08) K/mm3 Manual Slide Review Normal smear D-Dimer, Quantitative 2.78 H (0.19-0.50) mg/L Sodium (136-145) mEq/L Potassium (3.5-5.1) mEq/L Chloride (98-107) mEq/L Carbon Dioxide (21-32) mEq/L Anion Gap (5-15) BUN (7-18) mg/dL Creatinine (0.55-1.02) mg/dL Est Cr Clr Drug Dosing mL/min Estimated GFR (MDRD) (>60) mL/min BUN/Creatinine Ratio (14-18) Glucose (83-115) mg/dL Calcium (8.5-10.1) mg/dL Phosphorus (2.6-4.7) mg/dL Magnesium (1.8-2.4) mg/dl Total Bilirubin (0.2-1.0) mg/dL AST (15-37) U/L ALT (14-59) U/L Alkaline Phosphatase (46-116) U/L C-Reactive Protein (<1.0) mg/dL Total Protein (6.4-8.2) g/dl Albumin (3.4-5.0) g/dl Globulin gm/dL Albumin/Globulin Ratio (1-2) Procalcitonin 0.25 H ng/mL 06/03/20 Range/Units 05:51 WBC (3.98-10.04) K/mm3 RBC (3.98-5.22) M/mm3 Hgb (11.2-15.7) gm/dl Hct (34.1-44.9) % MCV (79.4-94.8) fl MCH (25.6-32.2) pg MCHC (32.2-35.5) g/dl RDW Std Deviation (36.4-46.3) fL Plt Count (182-369) K/mm3 MPV (9.4-12.3) fl Neut % (Auto) (34.0-71.1) % Lymph % (Auto) (19.3-51.7) % [place] % (Auto) (4.7-12.5) % Eos % (Auto) (0.7-5.8) Baso % (Auto) (0.1-1.2) % Neut # (Auto) (1.56-6.13) K/mm3 Lymph # (Auto) (1.18-3.74) K/mm3 [place] # (Auto) (0.24-0.36) K/mm3 Eos # (Auto) (0.04-0.36) K/mm3 Baso # (Auto) (0.01-0.08) K/mm3 Manual Slide Review D-Dimer, Quantitative (0.19-0.50) mg/L Sodium 147 H (136-145) mEq/L Potassium 4.2 (3.5-5.1) mEq/L Chloride 109 H (98-107) mEq/L Carbon Dioxide 28 (21-32) mEq/L Anion Gap 14.2 (5-15) BUN 22 H (7-18) mg/dL Creatinine 0.8 (0.55-1.02) mg/dL Est Cr Clr Drug Dosing 46.58 mL/min Estimated GFR (MDRD) > 60 (>60) mL/min BUN/Creatinine Ratio 27.5 H (14-18) Glucose 95 (83-115) mg/dL Calcium 8.3 L (8.5-10.1) mg/dL Phosphorus 2.1 L (2.6-4.7) mg/dL Magnesium 2.0 (1.8-2.4) mg/dl Total Bilirubin 0.4 (0.2-1.0) mg/dL AST 23 (15-37) U/L ALT 29 (14-59) U/L Alkaline Phosphatase 42 L (46-116) U/L C-Reactive Protein 4.5 H* (<1.0) mg/dL Total Protein 6.3 L (6.4-8.2) g/dl Albumin 2.4 L (3.4-5.0) g/dl Globulin 3.9 gm/dL Albumin/Globulin Ratio 0.6 L (1-2) Procalcitonin ng/mL Result Diagrams: 06/04/20 08:16 06/04/20 08:16 [facility]ides Results Last 24 hrs: Microbiology 06/01/20 09:52 Gram Stain - Final Sputum - Expectorated 05/31/20 15:10 Aerobic Blood Culture - Preliminary Blood NO GROWTH AFTER 2 DAYS Anaerobic Blood Culture - Preliminary NO GROWTH AFTER 2 DAYS 05/31/20 15:00 Aerobic Blood Culture - Preliminary Blood NO GROWTH AFTER 2 DAYS Anaerobic Blood Culture - Preliminary NO GROWTH AFTER 2 DAYS Sepsis Event Note - Evaluation Sepsis Screening Result: No Definite Risk - Focused Exam Vital Signs: Vital Signs Temp Temp Pulse Pulse Resp BP BP 06/03/20 04:40 36.8 C 76 14 138/92 H 06/03/20 04:00 06/03/20 00:20 06/03/20 00:15 06/03/20 00:10 36.6 C 68 18 146/88 H 06/02/20 20:40 130/95 H 06/02/20 20:21 36.7 C 68 24 H 135/99 H 06/02/20 19:57 Pulse Ox Pulse Ox 06/03/20 04:40 06/03/20 04:00 92 L 06/03/20 00:20 92 L 06/03/20 00:15 87 L 06/03/20 00:10 87 L 06/02/20 20:40 06/02/20 20:21 91 L 06/02/20 19:57 92 L - Problem List Review Problem List Initiated/Reviewed/Updated: Yes - Plan Plan:: 05/31/2020 Assessment 75-year-old female with positive COVID-19 10 days ago and symptoms for 13 days from [place], [place] was transferred here as a direct admission from her clinic. COVID-19 pneumonia Possible right lower lobe pneumonia Elevated D-dimer Respiratory failurehypoxemic Elevated CRP of 4.5 * Patient diagnosed 10 days ago with COVID-19 and symptomatic for 13 days. * She has been worsening over the last few days. * D-dimer greater than 35, WBC 11, lactic acid 1.0, LDH 276, ferritin 1389, C- reactive protein 11.6 * CT of the chest was negative for PE * Lower extremities show no swelling or, edema, redness, or tenderness essentially making lower extremity VTE unlikely * Lovenox 40 mg SubQ BID * Patient is between 10 and 13 days past Covid and has already had 9 days of dexamethasone * She will not likely benefit from remdesivir * On 2 grams IV Rocephin day 3/ * I would like to give her Actemra, but we do not have any and it is a drop shipment so we will not be able to get it for 4 to 5 days. Patient did receive Actemra therapy. Iatrogenic hyperthyroidism Surgical removal of the thyroid secondary to thyroid cancer * She is on a combination of C levothyroxine/liothyronine 75 mcg / 25 mcg SR capsule daily * TSH is significantly low at 0.009 * Patient has a history of anxiety * Levothyroxin 75 mcg po ACBreakfast Generalized anxiety disorder with panic attacks * Patient is currently hyperthyroid and this would increase her anxiety and panic attacks * Stable Hypokalemia, resolved Hypoalbuminemia * Likely secondary to poor oral intake secondary to COVID-19 * Potassium 3.3, albumin 2.7 * Repeat Albumin of 2.4 Acute kidney injury, resolved * Creatinine 1.2 with an estimated GFR of 44 * Some prerenal component could be part of this with BUN of 39 a creatinine of 1 .2 making her BUN to creatinine ratio greater than 20 * Known poor oral intake Mild Hypernatremia with Na of 147 Mild Hyperchloremia withCl of 109 Hypophosphatemia with PO4 of 2.1 * Discontinue any IV fuids * Will resume hydrochlorothiazide home medication for blood pressure control * Replete e-lytes * Repeat lab in AM Hypertension * No well controlled * She is on ARB * Will resume home dose HCTZ, this should help improve her hypernatremia Numerous Liver Cysts * CT scan abnormal findings * Follow up outpatient Plan * Admit to medical floor on telemetry and continuous pulse ox * FiO2 to keep SPO2 between 88 and 94% * Rocephin x5 days * Pepcid, melatonin, vitamin D, zinc * Incentive spirometry and Acapella * DuoNeb every 6 hours as needed * Patient required high flow nasal cannula almost immediately once arriving to the floor * Elevated D-dimer prompted starting a bolus of heparin while we are waiting CTA. CT machine was down initially delaying imaging. Once PE was ruled out Heparin was stopped and patient will be switched over to Lovenox for VTE prophylaxis. * Give patient 1 L LR over 10 hours to help with dehydration and possible renal insufficiency. * Patient is out of the window for remdesivir. * Give last dose of dexamethasone. * Decrease thyroid medications to only levothyroxine at 75 mcg daily * Follow Covid labs daily * Hold hydrochlorothiazide but continue other medications as propria. * Dietary consult and encourage oral intake. * CODE STATUS: DNR/DNI * Next of kin Yvrose: 06/01/2020 No significant changes from overnight. Patient continues on high flow nasal cannula with 50 L/min and 55%. Started on Rocephin, and given last dose of dexamethasone yesterday. Actemra will be given today. Respiratory therapy will work on helping her with her atelectasis, start EZ Pap, incentive spirometry and Acapella encouraged. Fortunately, D-dimer did decrease significantly down to 10.6 from greater than 35 yesterday. Continue her on Lovenox 40 mg twice daily. C-reactive protein is elevated at 16. Potassium is normal at 4.1 resolving her hypokalemia. Hypoalbuminemia continues to be problem with her albumin of 2.4. Renal function has improved with some fluids overnight and her creatinine is down to 0.9. Estimated GFR greater than 60 she still has an elevated BUN of 37. No additional fluids since patient is taking orally well. Patient has a poor prognosis. 06/02/2020 Patient continues to improve overnight. She is down to 40 L via high flow nasal cannula. Appetite remains good although she continues to have dropping of her albumin. It is down to 2.3 this is consistent with COVID-19 infection. Reading of the CTA of the chest found several liver cysts some of the uncomplicated but none of them appear malignant at this time. Patient states that in the past she has had a full work-up for her liver cysts. Labs continue to improve. Her D- dimer is down to 2.23. This is a significant improvement from admission when it was greater than 35. C-reactive protein is also down to 9.3. Electrolytes are normal. Patient did get 1 dose of Actemra yesterday and were going to give her 300 mg today. This is to decrease any more cytokine storm and inflammation. We have held her hydrochlorothiazide since she has been here and her blood pressures are pretty stable in the low 140s systolic. Plan will be to continue current treatment. Continue to wean off of high flow nasal cannula. Continue Acapella and incentive spirometry. She is on day 3 of Rocephin. Repeat Covid labs in the morning. 06/03/2020 She desaturated overnight in the 80s. She is now at 40% FiO2 35L high flow. She is willing to prone after breakfast. Continue current treatment. Routine AM Labs. Encourage to ambulate inside her room as many times as she can. IS and beside pulmonary exercise. Blood pressures are now elevated, we will resume home dose HCTZ. Resume Vit B12 and Vit D as well as home dose Melatonin. PT/OT for deconditioning. SW/CM for discharge planning. LOS > 96 hrs, she requires more time with treatment being on high flow. Prognosis is guarded.
[2020-06-03] MEDS: Zinc Sulfate 220 MG Cap PO SCH (08:34)
[2020-06-03] MEDS: Famotidine 20 MG Tab PO SCH ×2 (08:35→20:16)
[2020-06-03] MEDS: Losartan 100 MG Tab PO SCH (08:35)
[2020-06-03] MEDS: Aspirin 81 MG Tab.EC PO SCH (08:35)
[2020-06-03] MEDS: Enoxaparin 40 MG/0.4 ML Syringe SUBCUT SCH ×2 (08:36→20:17)
[2020-06-03] MEDS: Cholecalciferol (Vitamin D3) 5,000 UNIT Cap PO SCH (08:36)
[2020-06-03] MEDS ORDERED: Melatonin 3 MG Tab PO PRN (08:37)
[2020-06-03] MEDS ORDERED: Cholecalciferol (Vitamin D3) 25 MCG Tab PO SCH (09:00)
[2020-06-03] MEDS: Hydrochlorothiazide 25 MG Tab PO SCH (10:00)
[2020-06-03] MEDS: Cyanocobalamin (Vitamin B12) 1,000 MCG Tab PO SCH (10:01)
[2020-06-03] MEDS: cefTRIAXone 2 GM in Sodium Chloride 0.9% 100 ML IV SCH (15:14)
[2020-06-03] MEDS: Montelukast 10 MG Tab PO SCH (20:16)
[2020-06-04] MEDS: Levothyroxine 75 MCG Tab PO SCH (05:46)
--- NOTE | 2020-06-04 07:25 | PCM.PN ---
- General Info Date of Service: 06/04/20 Admission Dx/Problem (Free Text): Admission Diagnosis/Problem Admission Diagnosis/Problem Pneumonia, organism unspecified Subjective Update: No overnight or acute issues. No complaints this AM. She is now down to 31L on 30% FiO2. She continues to desaturates in the upper 80s with activities and ambulation. She is eating and drinking fine. She remains afebrile w/o leukocytosis. Functional Status: Reports: Pain Controlled, Tolerating Diet, Ambulating, Urinating, Incentive Spirometry - Review of Systems General: Denies: Fever, Chills HEENT: Reports: No Symptoms Pulmonary: Denies: Shortness of Breath Cardiovascular: Denies: Chest Pain Gastrointestinal: Denies: Abdominal Pain, Nausea, Vomiting Genitourinary: Denies: Dysuria, Burning Musculoskeletal: Denies: Joint Pain Skin: Denies: Mottled, Pallor, Bruising, Rash Neurological: Reports: Weakness, Gait Disturbance. Denies: Confusion Psychiatric: Denies: Depression, Anxiety - Patient Data Vitals - Most Recent: Last Vital Signs Temp 36.8 C 06/04/20 05:48 Pulse 82 06/04/20 05:48 Resp 20 06/04/20 05:48 BP 113/88 06/04/20 05:48 Pulse Ox 90 L 06/04/20 06:31 Weight - Most Recent: 75.568 kg I&O - Last 24 Hours: Intake & Output 06/03/20 06/04/20 06/04/20 22:59 06:59 14:59 Intake Total 1020 250 Output Total 200 500 Balance 820 -250 Leonides Results Last 24 Hours: Microbiology 05/31/20 15:10 Aerobic Blood Culture - Preliminary Blood NO GROWTH AFTER 3 DAYS Anaerobic Blood Culture - Preliminary NO GROWTH AFTER 3 DAYS 05/31/20 15:00 Aerobic Blood Culture - Preliminary Blood NO GROWTH AFTER 3 DAYS Anaerobic Blood Culture - Preliminary NO GROWTH AFTER 3 DAYS 06/01/20 09:52 Gram Stain - Final Sputum - Expectorated Sputum Culture - Preliminary Med Orders - Current: Current Medications Acetaminophen (Tylenol) 650 mg PO Q4H PRN PRN Reason: Pain (Mild 1-3)/fever Last Admin: 05/31/20 16:42 Dose: 650 mg Documented by: Albuterol/Ipratropium (Duoneb 3.0-0.5 Mg/3 Ml) 3 ml NEB Q6HRRT PRN PRN Reason: Dyspnea Aspirin (Halfprin) 81 mg PO DAILY [facility] Last Admin: 06/03/20 08:35 Dose: 81 mg Documented by: Cholecalciferol (Vitamin D3) 50 mcg PO DAILY [facility] Cyanocobalamin (Vitamin B12) 500 mcg PO DAILY [facility] Last Admin: 06/03/20 10:01 Dose: 500 mcg Documented by: Enoxaparin Sodium (Lovenox) 40 mg SUBCUT Q12H [facility] Last Admin: 06/03/20 20:17 Dose: 40 mg Documented by: Famotidine (Pepcid) 20 mg PO BID [facility] Last Admin: 06/03/20 20:16 Dose: 20 mg Documented by: Hydrochlorothiazide (Hydrochlorothiazide) 50 mg PO DAILY [facility] Last Admin: 06/03/20 10:00 Dose: 50 mg Documented by: Ceftriaxone Sodium 2 gm/ (Sodium Chloride) 100 mls @ 200 mls/hr IV Q24H [facility] Stop: 06/04/20 15:29 Last Admin: 06/03/20 15:14 Dose: 200 mls/hr Documented by: Levothyroxine Sodium (Levothyroxine) 75 mcg PO ACBREAKFAST [facility] Last Admin: 06/04/20 05:46 Dose: 75 mcg Documented by: Losartan Potassium (Cozaar) 100 mg PO DAILY [facility] Last Admin: 06/03/20 08:35 Dose: 100 mg Documented by: Melatonin (Melatonin) 9 mg PO BEDTIME PRN PRN Reason: Sleep Montelukast Sodium (Singulair) 10 mg PO BEDTIME [facility] Last Admin: 06/03/20 20:16 Dose: 10 mg Documented by: Zinc Sulfate (Zincate) 220 mg PO DAILY [facility] Last Admin: 06/03/20 08:34 Dose: 220 mg Documented by: Discontinued Medications Cholecalciferol (Vitamin D3) 5,000 unit PO DAILY [facility] Last Admin: 06/03/20 08:36 Dose: 5,000 unit Documented by: Dexamethasone (Dexamethasone) 6 mg PO ONETIME ONE Stop: 05/31/20 15:01 Last Admin: 05/31/20 16:41 Dose: 6 mg Documented by: Enoxaparin Sodium (Lovenox) 40 mg SUBCUT DAILY [facility] Heparin Sodium (Porcine) (Heparin Sodium) 5,000 units IVPUSH .BOLUS ONE Stop: 05/31/20 17:31 Last Admin: 05/31/20 17:45 Dose: 5,000 units Documented by: Heparin Sodium/Dextrose (Heparin 25,000 Units In D5w 500 Ml) 25,000 units in 500 mls @ 26 mls/hr IV TITRATE [facility]; Protocol Last Admin: 05/31/20 17:45 Dose: 1,300 units/hr, 26 mls/hr Documented by: Magnesium Sulfate 2 gm/ Premix 50 mls @ 25 mls/hr IV ONETIME ONE Stop: 05/31/20 19:30 Last Admin: 05/31/20 18:14 Dose: 25 mls/hr Documented by: Lactated Ringer's (Ringers, Lactated) 1,000 mls @ 100 mls/hr IV ASDIRECTED [facility] Stop: 06/01/20 07:14 Last Admin: 06/01/20 00:21 Dose: 100 mls/hr Documented by: Tocilizumab 600 mg/ Sodium (Chloride) 100 mls @ 100 mls/hr IV ONETIME [facility] Tocilizumab 600 mg/ Sodium (Chloride) 100 mls @ 100 mls/hr IV ONETIME ONE Stop: 06/01/20 14:29 Last Admin: 06/01/20 13:31 Dose: 100 mls/hr Documented by: Tocilizumab 300 mg/ Sodium (Chloride) 100 mls @ 100 mls/hr IV ONETIME ONE Stop: 06/02/20 13:59 Last Admin: 06/02/20 12:59 Dose: 100 mls/hr Documented by: Iopamidol (Isovue-370 (76%)) 100 ml IVPUSH ONETIME ONE Stop: 05/31/20 18:20 Last Admin: 05/31/20 18:51 Dose: 100 ml Documented by: Melatonin (Melatonin) 9 mg PO BEDTIME [facility] Last Admin: 06/02/20 20:23 Dose: 9 mg Documented by: Potassium Chloride (Klor-Con M20) 40 meq PO ONETIME ONE Stop: 05/31/20 17:16 Last Admin: 05/31/20 17:46 Dose: 40 meq Documented by: Zinc Sulfate (Zincate) 220 mg PO ONETIME ONE Stop: 06/01/20 09:01 Last Admin: 06/01/20 09:23 Dose: 220 mg Documented by: - Exam Quality Assessment: Supplemental Oxygen General: Alert, Oriented, Cooperative HEENT: Pupils Equal, Pupils Reactive, EOMI, Mucous Membr. Moist/[place] Neck: Supple Lungs: Normal Respiratory Effort, Decreased Breath Sounds Cardiovascular: Regular Rate, Regular Rhythm GI/Abdominal Exam: Normal Bowel Sounds, Soft, Non-Tender, No Organomegaly, No Distention, No Abnormal Bruit (Female) Exam: Deferred Back Exam: Normal Inspection, Decreased Range of Motion Extremities: Normal Inspection, Normal Range of Motion, Non-Tender, No Pedal Edema, Normal Capillary Refill, Other (she is standby assist) Peripheral Pulses: 2+: Dorsalis Pedis (L), Dorsalis Pedis (R) Skin: Warm, Dry, Intact Neurological: No New Focal Deficit Psy/Mental Status: Alert, Normal Affect, Normal Mood - Patient Data Result Diagrams: 06/04/20 08:16 06/04/20 08:16 Leonides Results Last 24 hrs: Microbiology 05/31/20 15:10 Aerobic Blood Culture - Preliminary Blood NO GROWTH AFTER 3 DAYS Anaerobic Blood Culture - Preliminary NO GROWTH AFTER 3 DAYS 05/31/20 15:00 Aerobic Blood Culture - Preliminary Blood NO GROWTH AFTER 3 DAYS Anaerobic Blood Culture - Preliminary NO GROWTH AFTER 3 DAYS 06/01/20 09:52 Gram Stain - Final Sputum - Expectorated Sputum Culture - Preliminary Sepsis Event Note - Evaluation Sepsis Screening Result: No Definite Risk - Focused Exam Vital Signs: Vital Signs Temp Pulse Resp BP Pulse Ox Pulse Ox 06/04/20 06:31 90 L 06/04/20 05:48 36.8 C 82 20 113/88 06/04/20 00:55 36.8 C 73 20 129/83 95 06/03/20 20:14 37.0 C 74 22 H 123/88 89 L - Problem List Review Problem List Initiated/Reviewed/Updated: Yes - My Orders Last 24 Hours: My Active Orders 06/03/20 08:37 Melatonin 9 mg PO BEDTIME PRN 06/03/20 09:00 Cyanocobalamin (Vitamin B12) [Vitamin B12] 500 mcg PO DAILY hydroCHLOROthiazide 50 mg PO DAILY 06/04/20 09:00 Cholecalciferol (Vitamin D3) [Vitamin D3] 50 mcg PO DAILY - Plan Plan:: 05/31/2020 Assessment 75-year-old female with positive COVID-19 10 days ago and symptoms for 13 days from [place], [place] was transferred here as a direct admission from her clinic. COVID-19 pneumonia Possible right lower lobe pneumonia Elevated D-dimer Respiratory failurehypoxemic Elevated CRP of 4.5, improved * Patient diagnosed 10 days ago with COVID-19 and symptomatic for 13 days. * She has been worsening over the last few days. * D-dimer greater than 35, WBC 11, lactic acid 1.0, LDH 276, ferritin 1389, C- reactive protein 11.6 * CT of the chest was negative for PE * Lower extremities show no swelling or, edema, redness, or tenderness essentially making lower extremity VTE unlikely * Lovenox 40 mg SubQ BID * Patient is between 10 and 13 days past Covid and has already had 9 days of dexamethasone * She will not likely benefit from remdesivir * On 2 grams IV Rocephin day 4/; she will get her 5th dose later this afternoon * I would like to give her Actemra, but we do not have any and it is a drop shipment so we will not be able to get it for 4 to 5 days. Patient received Actemra therapy. * Patient remains on high flow now down to 31L at 30% FIO2 * Goal to come off high flow and switch to nasal cannula Iatrogenic hyperthyroidism Surgical removal of the thyroid secondary to thyroid cancer * She is on a combination of C levothyroxine/liothyronine 75 mcg / 25 mcg SR capsule daily * TSH is significantly low at 0.009 * Patient has a history of anxiety * Levothyroxin 75 mcg po ACBreakfast Generalized anxiety disorder with panic attacks * Patient is currently hyperthyroid and this would increase her anxiety and panic attacks * Stable Hypoalbuminemia * Likely secondary to poor oral intake secondary to COVID-19 * Potassium 3.3, albumin 2.7 * Repeat Albumin of 2.4 Hypophosphatemia with PO4 of 2.1 * Discontinue any IV fuids * Repeat lab in AM Hypertension * BP Improved * Continue home dose losartan and hydrochlorothiazide Numerous Liver Cysts * CT scan abnormal findings * Follow up outpatient Resolved: Hypokalemia, resolved Acute kidney injury, resolved * Creatinine 1.2 with an estimated GFR of 44 * Some prerenal component could be part of this with BUN of 39 a creatinine of 1.2 making her BUN to creatinine ratio greater than 20 * Known poor oral intake Mild Hypernatremia with Na of 147, now 142 Mild Hyperchloremia with Cl of 109, now 103 Plan: * Admit to medical floor on telemetry and continuous pulse ox * FiO2 to keep SPO2 between 88 and 94% * Rocephin x5 days * Pepcid, melatonin, vitamin D, zinc * Incentive spirometry and Acapella * DuoNeb every 6 hours as needed * Patient required high flow nasal cannula almost immediately once arriving to the floor * Elevated D-dimer prompted starting a bolus of heparin while we are waiting CTA. CT machine was down initially delaying imaging. Once PE was ruled out Heparin was stopped and patient will be switched over to Lovenox for VTE prophylaxis. * Give patient 1 L LR over 10 hours to help with dehydration and possible renal insufficiency. * Patient is out of the window for remdesivir. * Give last dose of dexamethasone. * Decrease thyroid medications to only levothyroxine at 75 mcg daily * Follow Covid labs daily * Hold hydrochlorothiazide but continue other medications as propria. * Dietary consult and encourage oral intake. * CODE STATUS: DNR/DNI * Next of kin Yvrose: 06/01/2020 No significant changes from overnight. Patient continues on high flow nasal cannula with 50 L/min and 55%. Started on Rocephin, and given last dose of dexamethasone yesterday. Actemra will be given today. Respiratory therapy will work on helping her with her atelectasis, start EZ Pap, incentive spirometry and Acapella encouraged. Fortunately, D-dimer did decrease significantly down to 10.6 from greater than 35 yesterday. Continue her on Lovenox 40 mg twice daily. C-reactive protein is elevated at 16. Potassium is normal at 4.1 resolving her hypokalemia. Hypoalbuminemia continues to be problem with her albumin of 2.4. Renal function has improved with some fluids overnight and her creatinine is down to 0.9. Estimated GFR greater than 60 she still has an elevated BUN of 37. No additional fluids since patient is taking orally well. Patient has a poor prognosis. 06/02/2020 Patient continues to improve overnight. She is down to 40 L via high flow nasal cannula. Appetite remains good although she continues to have dropping of her albumin. It is down to 2.3 this is consistent with COVID-19 infection. Reading of the CTA of the chest found several liver cysts some of the uncomplicated but none of them appear malignant at this time. Patient states that in the past she has had a full work-up for her liver cysts. Labs continue to improve. Her D- dimer is down to 2.23. This is a significant improvement from admission when it was greater than 35. C-reactive protein is also down to 9.3. Electrolytes are normal. Patient did get 1 dose of Actemra yesterday and were going to give her 300 mg today. This is to decrease any more cytokine storm and inflammation. We have held her hydrochlorothiazide since she has been here and her blood pressures are pretty stable in the low 140s systolic. Plan will be to continue current treatment. Continue to wean off of high flow nasal cannula. Continue Acapella and incentive spirometry. She is on day 3 of Rocephin. Repeat Covid labs in the morning. 06/03/2020 She desaturated overnight in the 80s. She is now at 40% FiO2 35L high flow. She is willing to prone after breakfast. Continue current treatment. Routine AM Labs. Encourage to ambulate inside her room as many times as she can. IS and beside pulmonary exercise. Blood pressures are now elevated, we will resume home dose HCTZ. Resume Vit B12 and Vit D as well as home dose Melatonin. PT/OT for deconditioning. SW/CM for discharge planning. LOS > 96 hrs, she requires more time with treatment being on high flow. Prognosis is guarded. 06/04/2020 She is now at 30% FiO2 at 31L high flow. Encourage to continue proning. Continue current treatment. Routine AM Labs. Encourage to ambulate inside her room as many times as she can. IS and beside pulmonary exercise. PT/OT for deconditioning. SW/CM for discharge planning. LOS > 96 hrs, she requires more time with treatment being on high flow. Prognosis remains guarded.
[2020-06-04] MEDS: Zinc Sulfate 220 MG Cap PO SCH (08:25)
[2020-06-04] MEDS: Cyanocobalamin (Vitamin B12) 1,000 MCG Tab PO SCH (08:25)
[2020-06-04] MEDS: Hydrochlorothiazide 25 MG Tab PO SCH (08:28)
[2020-06-04] MEDS: Aspirin 81 MG Tab.EC PO SCH (08:28)
[2020-06-04] MEDS: Famotidine 20 MG Tab PO SCH ×2 (08:28→20:20)
[2020-06-04] MEDS: Losartan 100 MG Tab PO SCH (08:29)
[2020-06-04] MEDS: Enoxaparin 40 MG/0.4 ML Syringe SUBCUT SCH ×2 (08:30→20:20)
[2020-06-04] MEDS: Cholecalciferol (Vitamin D3) 25 MCG Tab PO SCH (08:30)
[2020-06-04] MEDS: cefTRIAXone 2 GM in Sodium Chloride 0.9% 100 ML IV SCH (15:05)
[2020-06-04] MEDS: Montelukast 10 MG Tab PO SCH (20:20)
--- NOTE | 2020-06-05 05:32 | PCM.PN ---
- General Info Date of Service: 06/05/20 Admission Dx/Problem (Free Text): Admission Diagnosis/Problem Admission Diagnosis/Problem Pneumonia, organism unspecified Subjective Update: No overnight or acute issues. No complaints this AM. She feels she is clinically improving. She is now at 3.5 to 4L NC sating in the low 90s. She remains afebrile w/o leukocytosis. She is doing fine with beside PT/OT activities. Functional Status: Reports: Pain Controlled, Tolerating Diet, Ambulating, Urinating, Incentive Spirometry. Denies: New Symptoms - Review of Systems General: Denies: Fever, Chills HEENT: Reports: No Symptoms Pulmonary: Denies: Shortness of Breath Cardiovascular: Denies: Chest Pain Gastrointestinal: Denies: Abdominal Pain, Nausea, Vomiting Genitourinary: Reports: No Symptoms Musculoskeletal: Reports: No Symptoms Skin: Denies: Cyanosis, Pallor, Diaphoresis Neurological: Reports: Difficulty Walking, Gait Disturbance. Denies: Confusion Psychiatric: Denies: Anxiety, Agitation - Patient Data Vitals - Most Recent: Last Vital Signs Temp 36.8 C 06/05/20 03:38 Pulse 72 06/05/20 03:38 Resp 18 06/05/20 03:38 BP 120/86 06/05/20 03:38 Pulse Ox 89 L 06/05/20 03:38 Weight - Most Recent: 75.568 kg I&O - Last 24 Hours: Intake & Output 06/04/20 06/04/20 06/05/20 14:59 22:59 06:59 Intake Total 300 1140 500 Output Total 350 450 Balance 300 790 50 Lab Results Last 24 Hours: Laboratory Results - last 24 hr 06/04/20 06/04/20 06/05/20 Range/Units 08:16 08:16 04:33 WBC 5.71 5.66 (3.98-10.04) K/mm3 RBC 5.18 4.93 (3.98-5.22) M/mm3 Hgb 14.3 13.6 (11.2-15.7) gm/dl Hct 46.0 H 43.5 (34.1-44.9) % MCV 88.8 88.2 (79.4-94.8) fl MCH 27.6 27.6 (25.6-32.2) pg MCHC 31.1 L 31.3 L (32.2-35.5) g/dl RDW Std Deviation 46.4 H 46.2 (36.4-46.3) fL Plt Count 290 259 (182-369) K/mm3 MPV 10.9 11.3 (9.4-12.3) fl Neut % (Auto) 63.9 59.4 (34.0-71.1) % Lymph % (Auto) 21.9 22.3 (19.3-51.7) % [place] % (Auto) 6.1 8.7 (4.7-12.5) % Eos % (Auto) 7.2 H 8.3 H (0.7-5.8) Baso % (Auto) 0.4 0.4 (0.1-1.2) % Neut # (Auto) 3.65 3.37 (1.56-6.13) K/mm3 Lymph # (Auto) 1.25 1.26 (1.18-3.74) K/mm3 [place] # (Auto) 0.35 0.49 H (0.24-0.36) K/mm3 Eos # (Auto) 0.41 H 0.47 H (0.04-0.36) K/mm3 Baso # (Auto) 0.02 0.02 (0.01-0.08) K/mm3 Manual Slide Review Normal smear Sodium 142 (136-145) mEq/L Potassium 3.8 (3.5-5.1) mEq/L Chloride 103 (98-107) mEq/L Carbon Dioxide 25 (21-32) mEq/L Anion Gap 17.8 H (5-15) BUN 20 H (7-18) mg/dL Creatinine 0.8 (0.55-1.02) mg/dL Est Cr Clr Drug Dosing 46.58 mL/min Estimated GFR (MDRD) > 60 (>60) mL/min BUN/Creatinine Ratio 25.0 H (14-18) Glucose 159 H (83-115) mg/dL Calcium 8.2 L (8.5-10.1) mg/dL Magnesium 1.9 (1.8-2.4) mg/dl Total Bilirubin 0.4 (0.2-1.0) mg/dL AST 32 (15-37) U/L ALT 44 (14-59) U/L Alkaline Phosphatase 47 (46-116) U/L C-Reactive Protein 2.6 H* (<1.0) mg/dL Total Protein 6.9 (6.4-8.2) g/dl Albumin 2.7 L (3.4-5.0) g/dl Globulin 4.2 gm/dL Albumin/Globulin Ratio 0.6 L (1-2) Leonides Results Last 24 Hours: Microbiology 05/31/20 15:10 Aerobic Blood Culture - Preliminary Blood NO GROWTH AFTER 4 DAYS Anaerobic Blood Culture - Preliminary NO GROWTH AFTER 4 DAYS 05/31/20 15:00 Aerobic Blood Culture - Preliminary Blood NO GROWTH AFTER 4 DAYS Anaerobic Blood Culture - Preliminary NO GROWTH AFTER 4 DAYS 06/01/20 09:52 Gram Stain - Final Sputum - Expectorated Sputum Culture - Final Fátima Albicans Med Orders - Current: Current Medications Acetaminophen (Tylenol) 650 mg PO Q4H PRN PRN Reason: Pain (Mild 1-3)/fever Last Admin: 05/31/20 16:42 Dose: 650 mg Documented by: Albuterol/Ipratropium (Duoneb 3.0-0.5 Mg/3 Ml) 3 ml NEB Q6HRRT PRN PRN Reason: Dyspnea Aspirin (Halfprin) 81 mg PO DAILY [facility] Last Admin: 06/04/20 08:28 Dose: 81 mg Documented by: Cholecalciferol (Vitamin D3) 50 mcg PO DAILY [facility] Last Admin: 06/04/20 08:30 Dose: 50 mcg Documented by: Cyanocobalamin (Vitamin B12) 500 mcg PO DAILY [facility] Last Admin: 06/04/20 08:25 Dose: 500 mcg Documented by: Enoxaparin Sodium (Lovenox) 40 mg SUBCUT Q12H [facility] Last Admin: 06/04/20 20:20 Dose: 40 mg Documented by: Famotidine (Pepcid) 20 mg PO BID [facility] Last Admin: 06/04/20 20:20 Dose: 20 mg Documented by: Hydrochlorothiazide (Hydrochlorothiazide) 50 mg PO DAILY [facility] Last Admin: 06/04/20 08:28 Dose: 50 mg Documented by: Levothyroxine Sodium (Levothyroxine) 75 mcg PO ACBREAKFAST [facility] Last Admin: 06/04/20 05:46 Dose: 75 mcg Documented by: Losartan Potassium (Cozaar) 100 mg PO DAILY [facility] Last Admin: 06/04/20 08:29 Dose: 100 mg Documented by: Melatonin (Melatonin) 9 mg PO BEDTIME PRN PRN Reason: Sleep Montelukast Sodium (Singulair) 10 mg PO BEDTIME [facility] Last Admin: 06/04/20 20:20 Dose: 10 mg Documented by: Zinc Sulfate (Zincate) 220 mg PO DAILY [facility] Last Admin: 06/04/20 08:25 Dose: 220 mg Documented by: Discontinued Medications Cholecalciferol (Vitamin D3) 5,000 unit PO DAILY [facility] Last Admin: 06/03/20 08:36 Dose: 5,000 unit Documented by: Dexamethasone (Dexamethasone) 6 mg PO ONETIME ONE Stop: 05/31/20 15:01 Last Admin: 05/31/20 16:41 Dose: 6 mg Documented by: Enoxaparin Sodium (Lovenox) 40 mg SUBCUT DAILY [facility] Heparin Sodium (Porcine) (Heparin Sodium) 5,000 units IVPUSH .BOLUS ONE Stop: 05/31/20 17:31 Last Admin: 05/31/20 17:45 Dose: 5,000 units Documented by: Ceftriaxone Sodium 2 gm/ (Sodium Chloride) 100 mls @ 200 mls/hr IV Q24H [facility] Stop: 06/04/20 15:29 Last Admin: 06/04/20 15:05 Dose: 200 mls/hr Documented by: Heparin Sodium/Dextrose (Heparin 25,000 Units In D5w 500 Ml) 25,000 units in 500 mls @ 26 mls/hr IV TITRATE [facility]; Protocol Last Admin: 05/31/20 17:45 Dose: 1,300 units/hr, 26 mls/hr Documented by: Magnesium Sulfate 2 gm/ Premix 50 mls @ 25 mls/hr IV ONETIME ONE Stop: 05/31/20 19:30 Last Admin: 05/31/20 18:14 Dose: 25 mls/hr Documented by: Lactated Ringer's (Ringers, Lactated) 1,000 mls @ 100 mls/hr IV ASDIRECTED [facility] Stop: 06/01/20 07:14 Last Admin: 06/01/20 00:21 Dose: 100 mls/hr Documented by: Tocilizumab 600 mg/ Sodium (Chloride) 100 mls @ 100 mls/hr IV ONETIME [facility] Tocilizumab 600 mg/ Sodium (Chloride) 100 mls @ 100 mls/hr IV ONETIME ONE Stop: 06/01/20 14:29 Last Admin: 06/01/20 13:31 Dose: 100 mls/hr Documented by: Tocilizumab 300 mg/ Sodium (Chloride) 100 mls @ 100 mls/hr IV ONETIME ONE Stop: 06/02/20 13:59 Last Admin: 06/02/20 12:59 Dose: 100 mls/hr Documented by: Iopamidol (Isovue-370 (76%)) 100 ml IVPUSH ONETIME ONE Stop: 05/31/20 18:20 Last Admin: 05/31/20 18:51 Dose: 100 ml Documented by: Melatonin (Melatonin) 9 mg PO BEDTIME [facility] Last Admin: 06/02/20 20:23 Dose: 9 mg Documented by: Potassium Chloride (Klor-Con M20) 40 meq PO ONETIME ONE Stop: 05/31/20 17:16 Last Admin: 05/31/20 17:46 Dose: 40 meq Documented by: Zinc Sulfate (Zincate) 220 mg PO ONETIME ONE Stop: 06/01/20 09:01 Last Admin: 06/01/20 09:23 Dose: 220 mg Documented by: - Exam Quality Assessment: Supplemental Oxygen, DVT Prophylaxis General: Alert, Oriented HEENT: Pupils Equal, Pupils Reactive, EOMI, Mucous Membr. Moist/[place] Neck: Supple Lungs: Normal Respiratory Effort, Decreased Breath Sounds Cardiovascular: Regular Rate, Regular Rhythm GI/Abdominal Exam: Normal Bowel Sounds, Soft, Non-Tender, No Organomegaly, No Distention, No Mass, Pelvis Stable (Female) Exam: Deferred Back Exam: Normal Inspection, Decreased Range of Motion Extremities: Normal Inspection, Normal Range of Motion, Non-Tender, No Pedal Edema, Normal Capillary Refill Peripheral Pulses: 2+: Posterior Tibial (R), Dorsalis Pedis (R) Skin: Warm, Dry, Intact Neurological: No New Focal Deficit. No: Normal Gait Psy/Mental Status: Alert, Normal Affect, Normal Mood - Patient Data Lab Results Last 24 hrs: Laboratory Results - last 24 hr 06/04/20 06/04/20 06/05/20 Range/Units 08:16 08:16 04:33 WBC 5.71 5.66 (3.98-10.04) K/mm3 RBC 5.18 4.93 (3.98-5.22) M/mm3 Hgb 14.3 13.6 (11.2-15.7) gm/dl Hct 46.0 H 43.5 (34.1-44.9) % MCV 88.8 88.2 (79.4-94.8) fl MCH 27.6 27.6 (25.6-32.2) pg MCHC 31.1 L 31.3 L (32.2-35.5) g/dl RDW Std Deviation 46.4 H 46.2 (36.4-46.3) fL Plt Count 290 259 (182-369) K/mm3 MPV 10.9 11.3 (9.4-12.3) fl Neut % (Auto) 63.9 59.4 (34.0-71.1) % Lymph % (Auto) 21.9 22.3 (19.3-51.7) % [place] % (Auto) 6.1 8.7 (4.7-12.5) % Eos % (Auto) 7.2 H 8.3 H (0.7-5.8) Baso % (Auto) 0.4 0.4 (0.1-1.2) % Neut # (Auto) 3.65 3.37 (1.56-6.13) K/mm3 Lymph # (Auto) 1.25 1.26 (1.18-3.74) K/mm3 [place] # (Auto) 0.35 0.49 H (0.24-0.36) K/mm3 Eos # (Auto) 0.41 H 0.47 H (0.04-0.36) K/mm3 Baso # (Auto) 0.02 0.02 (0.01-0.08) K/mm3 Manual Slide Review Normal smear Sodium 142 (136-145) mEq/L Potassium 3.8 (3.5-5.1) mEq/L Chloride 103 (98-107) mEq/L Carbon Dioxide 25 (21-32) mEq/L Anion Gap 17.8 H (5-15) BUN 20 H (7-18) mg/dL Creatinine 0.8 (0.55-1.02) mg/dL Est Cr Clr Drug Dosing 46.58 mL/min Estimated GFR (MDRD) > 60 (>60) mL/min BUN/Creatinine Ratio 25.0 H (14-18) Glucose 159 H (83-115) mg/dL Calcium 8.2 L (8.5-10.1) mg/dL Magnesium 1.9 (1.8-2.4) mg/dl Total Bilirubin 0.4 (0.2-1.0) mg/dL AST 32 (15-37) U/L ALT 44 (14-59) U/L Alkaline Phosphatase 47 (46-116) U/L C-Reactive Protein 2.6 H* (<1.0) mg/dL Total Protein 6.9 (6.4-8.2) g/dl Albumin 2.7 L (3.4-5.0) g/dl Globulin 4.2 gm/dL Albumin/Globulin Ratio 0.6 L (1-2) Result Diagrams: 06/06/20 04:28 06/06/20 04:28 Leonides Results Last 24 hrs: Microbiology 05/31/20 15:10 Aerobic Blood Culture - Preliminary Blood NO GROWTH AFTER 4 DAYS Anaerobic Blood Culture - Preliminary NO GROWTH AFTER 4 DAYS 05/31/20 15:00 Aerobic Blood Culture - Preliminary Blood NO GROWTH AFTER 4 DAYS Anaerobic Blood Culture - Preliminary NO GROWTH AFTER 4 DAYS 06/01/20 09:52 Gram Stain - Final Sputum - Expectorated Sputum Culture - Final Fátima Albicans Sepsis Event Note - Evaluation Sepsis Screening Result: No Definite Risk - Focused Exam Vital Signs: Vital Signs Temp Pulse Resp BP Pulse Ox Pulse Ox 06/05/20 03:38 36.8 C 72 18 120/86 89 L 06/04/20 20:18 36.8 C 78 22 H 100/73 91 L 06/04/20 19:45 93 L - Problem List Review Problem List Initiated/Reviewed/Updated: Yes - My Orders Last 24 Hours: My Active Orders 06/04/20 09:00 Cholecalciferol (Vitamin D3) [Vitamin D3] 50 mcg PO DAILY 06/04/20 16:26 Oxygen Therapy [RC] ASDIRECTED 06/05/20 04:33 CBC WITH AUTO DIFF [HEME] AM CMP [COMPREHENSIVE METABOLIC PN,CMP] [CHEM] AM CRP [C-REACTIVE PROTEIN] [CHEM] AM PHOSPHORUS [CHEM] AM 06/06/20 05:11 CBC WITH AUTO DIFF [HEME] AM CMP [COMPREHENSIVE METABOLIC PN,CMP] [CHEM] AM CRP [C-REACTIVE PROTEIN] [CHEM] AM 06/07/20 05:11 CBC WITH AUTO DIFF [HEME] AM CMP [COMPREHENSIVE METABOLIC PN,CMP] [CHEM] AM CRP [C-REACTIVE PROTEIN] [CHEM] AM 06/08/20 05:11 CBC WITH AUTO DIFF [HEME] AM CMP [COMPREHENSIVE METABOLIC PN,CMP] [CHEM] AM CRP [C-REACTIVE PROTEIN] [CHEM] AM - Plan Plan:: 05/31/2020 Assessment 75-year-old female with positive COVID-19 10 days ago and symptoms for 13 days from [place], [place] was transferred here as a direct admission from her clinic. COVID-19 pneumonia Possible right lower lobe pneumonia Elevated D-dimer Respiratory failurehypoxemic Elevated CRP of 4.5, now 1.5 * Patient diagnosed 10 days ago with COVID-19 and symptomatic for 13 days. * She has been worsening over the last few days. * D-dimer greater than 35, WBC 11, lactic acid 1.0, LDH 276, ferritin 1389, C- reactive protein 11.6 * CT of the chest was negative for PE * Lower extremities show no swelling or, edema, redness, or tenderness essentially making lower extremity VTE unlikely * Lovenox 40 mg SubQ BID * Patient is between 10 and 13 days past Covid and has already had 9 days of dexamethasone * She will not likely benefit from remdesivir * On 2 grams IV Rocephin day 4/5; she will get her 5th dose later this afternoon * I would like to give her Actemra, but we do not have any and it is a drop shipment so we will not be able to get it for 4 to 5 days. Patient received Actemra therapy. * Patient remains on high flow now down to 31L at 30% FIO2 * Goal to come off high flow and switch to nasal cannula Iatrogenic hyperthyroidism Surgical removal of the thyroid secondary to thyroid cancer * She is on a combination of C levothyroxine/liothyronine 75 mcg / 25 mcg SR capsule daily * TSH is significantly low at 0.009 * Patient has a history of anxiety * Levothyroxin 75 mcg po AC Breakfast Generalized anxiety disorder with panic attacks * Patient is currently hyperthyroid and this would increase her anxiety and panic attacks * Stable Hypoalbuminemia * Likely secondary to poor oral intake secondary to COVID-19 * Potassium 3.3, albumin 2.7 * Repeat Albumin of 2.4 Hypophosphatemia with PO4 of 2.1 * Discontinue any IV fluids * Repeat lab in AM Hypertension * BP Improved * Continue home dose losartan and hydrochlorothiazide Numerous Liver Cysts * CT scan abnormal findings * Follow up outpatient Resolved: Hypokalemia, resolved Acute kidney injury, resolved * Creatinine 1.2 with an estimated GFR of 44 * Some prerenal component could be part of this with BUN of 39 a creatinine of 1.2 making her BUN to creatinine ratio greater than 20 * Known poor oral intake Mild Hypernatremia with Na of 147, now 142 Mild Hyperchloremia with Cl of 109, now 103 Plan: * Admit to medical floor on telemetry and continuous pulse ox * FiO2 to keep SPO2 between 88 and 94% * Rocephin x5 days * Pepcid, melatonin, vitamin D, zinc * Incentive spirometry and Acapella * DuoNeb every 6 hours as needed * Patient required high flow nasal cannula almost immediately once arriving to the floor * Elevated D-dimer prompted starting a bolus of heparin while we are waiting CTA. CT machine was down initially delaying imaging. Once PE was ruled out Heparin was stopped and patient will be switched over to Lovenox for VTE prophylaxis. * Give patient 1 L LR over 10 hours to help with dehydration and possible renal insufficiency. * Patient is out of the window for remdesivir. * Give last dose of dexamethasone. * Decrease thyroid medications to only levothyroxine at 75 mcg daily * Follow Covid labs daily * Hold hydrochlorothiazide but continue other medications as propria. * Dietary consult and encourage oral intake. * CODE STATUS: DNR/DNI * Next of kin Yvrose: 06/01/2020 No significant changes from overnight. Patient continues on high flow nasal cannula with 50 L/min and 55%. Started on Rocephin, and given last dose of dexamethasone yesterday. Actemra will be given today. Respiratory therapy will work on helping her with her atelectasis, start EZ Pap, incentive spirometry and Acapella encouraged. Fortunately, D-dimer did decrease significantly down to 10.6 from greater than 35 yesterday. Continue her on Lovenox 40 mg twice daily. C-reactive protein is elevated at 16. Potassium is normal at 4.1 resolving her hypokalemia. Hypoalbuminemia continues to be problem with her albumin of 2.4. Renal function has improved with some fluids overnight and her creatinine is down to 0.9. Estimated GFR greater than 60 she still has an elevated BUN of 37. No additional fluids since patient is taking orally well. Patient has a poor prognosis. 06/02/2020 Patient continues to improve overnight. She is down to 40 L via high flow nasal cannula. Appetite remains good although she continues to have dropping of her albumin. It is down to 2.3 this is consistent with COVID-19 infection. Reading of the CTA of the chest found several liver cysts some of the uncomplicated but none of them appear malignant at this time. Patient states that in the past she has had a full work-up for her liver cysts. Labs continue to improve. Her D-dimer is down to 2.23. This is a significant improvement from admission when it was greater than 35. C-reactive protein is also down to 9.3. Electrolytes are normal. Patient did get 1 dose of Actemra yesterday and were going to give her 300 mg today. This is to decrease any more cytokine storm and inflammation. We have held her hydrochlorothiazide since she has been here and her blood pressures are pretty stable in the low 140s systolic. Plan will be to continue current treatment. Continue to wean off of high flow nasal cannula. Continue Acapella and incentive spirometry. She is on day 3 of Rocephin. Repeat Covid labs in the morning. 06/03/2020 She desaturated overnight in the 80s. She is now at 40% FiO2 35L high flow. She is willing to prone after breakfast. Continue current treatment. Routine AM Labs. Encourage to ambulate inside her room as many times as she can. IS and beside pulmonary exercise. Blood pressures are now elevated, we will resume home dose HCTZ. Resume Vit B12 and Vit D as well as home dose Melatonin. PT/OT for deconditioning. SW/CM for discharge planning. LOS > 96 hrs, she requires more time with treatment being on high flow. Prognosis is guarded. 06/04/2020 She is now at 30% FiO2 at 31L high flow. Encourage to continue proning. Continue current treatment. Routine AM Labs. Encourage to ambulate inside her room as many times as she can. IS and beside pulmonary exercise. PT/OT for de conditioning. SW/CM for discharge planning. LOS > 96 hrs, she requires more time with treatment being on high flow. Prognosis remains guarded. 06/05/2020 She is relatively stable. She is now at at 3.5-4L NC sating in the low 90s. Continue to encourage proning. Continue current treatment. Routine AM Labs. Encourage to ambulate inside her room as many times as she can. IS and beside pulmonary exercise. Repeat chest x-ray this AM. PT/OT for deconditioning. SW/CM for discharge planning. LOS > 96 hrs, she requires more time with treatment. Prognosis is guarded-good. 0924: Repeat chest x-ray appears improved lungs. We will continue with aggressive proning.
[2020-06-05] MEDS: Levothyroxine 75 MCG Tab PO SCH (06:20)
--- NOTE | 2020-06-05 07:59 | CR ---
Chest: Portable view of the chest was obtained. Comparison: Prior chest x-ray of 05/31/20. Heart size and mediastinum are normal. Worsening areas of increased density is seen on both sides of the chest, worse within the mid and lower lungs. Heart size and mediastinum are stable. Previous surgery within the base of the neck is noted. No acute osseous finding is seen. Impression: 1. Worsening areas of increased density within both sides of the chest compatible with worsening COVID pneumonia. Diagnostic code #3
[2020-06-05] MEDS: Hydrochlorothiazide 25 MG Tab PO SCH (08:45)
[2020-06-05] MEDS: Aspirin 81 MG Tab.EC PO SCH (08:45)
[2020-06-05] MEDS: Losartan 100 MG Tab PO SCH (08:46)
[2020-06-05] MEDS: Cholecalciferol (Vitamin D3) 25 MCG Tab PO SCH (08:46)
[2020-06-05] MEDS: Cyanocobalamin (Vitamin B12) 1,000 MCG Tab PO SCH (08:46)
[2020-06-05] MEDS: Zinc Sulfate 220 MG Cap PO SCH (08:46)
[2020-06-05] MEDS: Famotidine 20 MG Tab PO SCH ×2 (08:46→21:34)
[2020-06-05] MEDS: Enoxaparin 40 MG/0.4 ML Syringe SUBCUT SCH ×2 (08:47→21:34)
[2020-06-05] MEDS: Montelukast 10 MG Tab PO SCH (21:35)
[2020-06-06] MEDS: Levothyroxine 75 MCG Tab PO SCH (06:00)
--- NOTE | 2020-06-06 06:42 | PCM.PN ---
- General Info Date of Service: 06/06/20 Admission Dx/Problem (Free Text): Admission Diagnosis/Problem Admission Diagnosis/Problem Pneumonia, organism unspecified Subjective Update: No overnight or acute issues. No complaints this AM. She continues to do well. She is now at 2-3 L NC sating in the low 90s. She slept in prone position started at 2300 last night. She remains afebrile w/o leukocytosis. She is doing fine with beside PT/OT activities. She states is not on supplemental O2 at home and does not have any forms of O2 to use if needed. she feels pretty good and ready to go home. Functional Status: Reports: Pain Controlled, Tolerating Diet, Ambulating, Urinating, Incentive Spirometry. Denies: New Symptoms - Review of Systems General: Denies: Fever, Fatigue, Chills HEENT: Reports: No Symptoms Pulmonary: Denies: Shortness of Breath, Cough Cardiovascular: Denies: Chest Pain Gastrointestinal: Denies: Abdominal Pain, Nausea, Vomiting Genitourinary: Denies: Dysuria, Burning Musculoskeletal: Reports: No Symptoms Skin: Denies: Cyanosis, Diaphoresis Neurological: Reports: Gait Disturbance. Denies: Confusion Psychiatric: Denies: Depression, Mood Lability, Anxiety, Agitation - Patient Data Vitals - Most Recent: Last Vital Signs Temp 36.6 C 06/06/20 06:00 Pulse 84 06/06/20 06:00 Resp 20 06/06/20 06:00 BP 126/80 06/06/20 06:00 Pulse Ox 94 L 06/06/20 06:00 Weight - Most Recent: 75.251 kg I&O - Last 24 Hours: Intake & Output 06/05/20 06/05/20 06/06/20 14:59 22:59 06:59 Intake Total 850 500 Output Total 300 Balance 550 500 Lab Results Last 24 Hours: Laboratory Results - last 24 hr 06/06/20 06/06/20 Range/Units 04:28 04:28 WBC 6.42 (3.98-10.04) K/mm3 RBC 5.02 (3.98-5.22) M/mm3 Hgb 13.9 (11.2-15.7) gm/dl Hct 44.8 (34.1-44.9) % MCV 89.2 (79.4-94.8) fl MCH 27.7 (25.6-32.2) pg MCHC 31.0 L (32.2-35.5) g/dl RDW Std Deviation 47.8 H (36.4-46.3) fL Plt Count 240 (182-369) K/mm3 MPV 11.1 (9.4-12.3) fl Neut % (Auto) 58.2 (34.0-71.1) % Lymph % (Auto) 23.5 (19.3-51.7) % [place] % (Auto) 8.9 (4.7-12.5) % Eos % (Auto) 7.8 H (0.7-5.8) Baso % (Auto) 0.5 (0.1-1.2) % Neut # (Auto) 3.74 (1.56-6.13) K/mm3 Lymph # (Auto) 1.51 (1.18-3.74) K/mm3 [place] # (Auto) 0.57 H (0.24-0.36) K/mm3 Eos # (Auto) 0.50 H (0.04-0.36) K/mm3 Baso # (Auto) 0.03 (0.01-0.08) K/mm3 Sodium 142 (136-145) mEq/L Potassium 3.9 (3.5-5.1) mEq/L Chloride 105 (98-107) mEq/L Carbon Dioxide 27 (21-32) mEq/L Anion Gap 13.9 (5-15) BUN 28 H (7-18) mg/dL Creatinine 1.0 (0.55-1.02) mg/dL Est Cr Clr Drug Dosing 37.26 mL/min Estimated GFR (MDRD) 54 (>60) mL/min BUN/Creatinine Ratio 28.0 H (14-18) Glucose 102 (83-115) mg/dL Calcium 8.9 (8.5-10.1) mg/dL Total Bilirubin 0.5 (0.2-1.0) mg/dL AST 73 H (15-37) U/L ALT 104 H (14-59) U/L Alkaline Phosphatase 50 (46-116) U/L C-Reactive Protein 1.1 H* (<1.0) mg/dL Total Protein 6.6 (6.4-8.2) g/dl Albumin 2.8 L (3.4-5.0) g/dl Globulin 3.8 gm/dL Albumin/Globulin Ratio 0.7 L (1-2) Leonides Results Last 24 Hours: Microbiology 05/31/20 15:10 Aerobic Blood Culture - Preliminary Blood NO GROWTH AFTER 5 DAYS Anaerobic Blood Culture - Preliminary NO GROWTH AFTER 5 DAYS 05/31/20 15:00 Aerobic Blood Culture - Preliminary Blood NO GROWTH AFTER 5 DAYS Anaerobic Blood Culture - Preliminary NO GROWTH AFTER 5 DAYS Med Orders - Current: Current Medications Acetaminophen (Tylenol) 650 mg PO Q4H PRN PRN Reason: Pain (Mild 1-3)/fever Last Admin: 05/31/20 16:42 Dose: 650 mg Documented by: Albuterol/Ipratropium (Duoneb 3.0-0.5 Mg/3 Ml) 3 ml NEB Q6HRRT PRN PRN Reason: Dyspnea Aspirin (Halfprin) 81 mg PO DAILY [facility] Last Admin: 06/05/20 08:45 Dose: 81 mg Documented by: Cholecalciferol (Vitamin D3) 50 mcg PO DAILY [facility] Last Admin: 06/05/20 08:46 Dose: 50 mcg Documented by: Cyanocobalamin (Vitamin B12) 500 mcg PO DAILY [facility] Last Admin: 06/05/20 08:46 Dose: 500 mcg Documented by: Enoxaparin Sodium (Lovenox) 40 mg SUBCUT Q12H [facility] Last Admin: 06/05/20 21:34 Dose: 40 mg Documented by: Famotidine (Pepcid) 20 mg PO BID [facility] Last Admin: 06/05/20 21:34 Dose: 20 mg Documented by: Hydrochlorothiazide (Hydrochlorothiazide) 50 mg PO DAILY [facility] Last Admin: 06/05/20 08:45 Dose: 50 mg Documented by: Levothyroxine Sodium (Levothyroxine) 75 mcg PO ACBREAKFAST [facility] Last Admin: 06/06/20 06:00 Dose: 75 mcg Documented by: Losartan Potassium (Cozaar) 100 mg PO DAILY [facility] Last Admin: 06/05/20 08:46 Dose: 100 mg Documented by: Melatonin (Melatonin) 9 mg PO BEDTIME PRN PRN Reason: Sleep Montelukast Sodium (Singulair) 10 mg PO BEDTIME [facility] Last Admin: 06/05/20 21:35 Dose: 10 mg Documented by: Zinc Sulfate (Zincate) 220 mg PO DAILY [facility] Last Admin: 06/05/20 08:46 Dose: 220 mg Documented by: Discontinued Medications Cholecalciferol (Vitamin D3) 5,000 unit PO DAILY [facility] Last Admin: 06/03/20 08:36 Dose: 5,000 unit Documented by: Dexamethasone (Dexamethasone) 6 mg PO ONETIME ONE Stop: 05/31/20 15:01 Last Admin: 05/31/20 16:41 Dose: 6 mg Documented by: Enoxaparin Sodium (Lovenox) 40 mg SUBCUT DAILY [facility] Heparin Sodium (Porcine) (Heparin Sodium) 5,000 units IVPUSH .BOLUS ONE Stop: 05/31/20 17:31 Last Admin: 05/31/20 17:45 Dose: 5,000 units Documented by: Ceftriaxone Sodium 2 gm/ (Sodium Chloride) 100 mls @ 200 mls/hr IV Q24H [facility] Stop: 06/04/20 15:29 Last Admin: 06/04/20 15:05 Dose: 200 mls/hr Documented by: Heparin Sodium/Dextrose (Heparin 25,000 Units In D5w 500 Ml) 25,000 units in 500 mls @ 26 mls/hr IV TITRATE [facility]; Protocol Last Admin: 05/31/20 17:45 Dose: 1,300 units/hr, 26 mls/hr Documented by: Magnesium Sulfate 2 gm/ Premix 50 mls @ 25 mls/hr IV ONETIME ONE Stop: 05/31/20 19:30 Last Admin: 05/31/20 18:14 Dose: 25 mls/hr Documented by: Lactated Ringer's (Ringers, Lactated) 1,000 mls @ 100 mls/hr IV ASDIRECTED [facility] Stop: 06/01/20 07:14 Last Admin: 06/01/20 00:21 Dose: 100 mls/hr Documented by: Tocilizumab 600 mg/ Sodium (Chloride) 100 mls @ 100 mls/hr IV ONETIME [facility]IDGER Tocilizumab 600 mg/ Sodium (Chloride) 100 mls @ 100 mls/hr IV ONETIME ONE Stop: 06/01/20 14:29 Last Admin: 06/01/20 13:31 Dose: 100 mls/hr Documented by: Tocilizumab 300 mg/ Sodium (Chloride) 100 mls @ 100 mls/hr IV ONETIME ONE Stop: 06/02/20 13:59 Last Admin: 06/02/20 12:59 Dose: 100 mls/hr Documented by: Iopamidol (Isovue-370 (76%)) 100 ml IVPUSH ONETIME ONE Stop: 05/31/20 18:20 Last Admin: 05/31/20 18:51 Dose: 100 ml Documented by: Melatonin (Melatonin) 9 mg PO BEDTIME BRIDGER Last Admin: 06/02/20 20:23 Dose: 9 mg Documented by: Potassium Chloride (Klor-Con M20) 40 meq PO ONETIME ONE Stop: 05/31/20 17:16 Last Admin: 05/31/20 17:46 Dose: 40 meq Documented by: Zinc Sulfate (Zincate) 220 mg PO ONETIME ONE Stop: 06/01/20 09:01 Last Admin: 06/01/20 09:23 Dose: 220 mg Documented by: - Exam Quality Assessment: Supplemental Oxygen General: Alert, Oriented, Cooperative, No Acute Distress HEENT: Pupils Reactive, EOMI, Mucous Membr. Moist/[place] Neck: Trachea Midline Lungs: Normal Respiratory Effort, Decreased Breath Sounds Cardiovascular: Regular Rate, Regular Rhythm GI/Abdominal Exam: Normal Bowel Sounds, Soft, Non-Tender, No Organomegaly, No Distention, No Abnormal Bruit, No Mass, Pelvis Stable (Female) Exam: Deferred Back Exam: Normal Inspection, Decreased Range of Motion Extremities: Normal Inspection, Normal Range of Motion, Non-Tender, No Pedal Edema, Normal Capillary Refill, Other (requires stand by assist) Peripheral Pulses: 2+: Dorsalis Pedis (L), Dorsalis Pedis (R) Skin: Warm, Dry, Intact Neurological: No New Focal Deficit. No: Normal Gait Psy/Mental Status: Alert, Normal Affect, Normal Mood - Patient Data Lab Results Last 24 hrs: Laboratory Results - last 24 hr 06/06/20 06/06/20 Range/Units 04:28 04:28 WBC 6.42 (3.98-10.04) K/mm3 RBC 5.02 (3.98-5.22) M/mm3 Hgb 13.9 (11.2-15.7) gm/dl Hct 44.8 (34.1-44.9) % MCV 89.2 (79.4-94.8) fl MCH 27.7 (25.6-32.2) pg MCHC 31.0 L (32.2-35.5) g/dl RDW Std Deviation 47.8 H (36.4-46.3) fL Plt Count 240 (182-369) K/mm3 MPV 11.1 (9.4-12.3) fl Neut % (Auto) 58.2 (34.0-71.1) % Lymph % (Auto) 23.5 (19.3-51.7) % [place] % (Auto) 8.9 (4.7-12.5) % Eos % (Auto) 7.8 H (0.7-5.8) Baso % (Auto) 0.5 (0.1-1.2) % Neut # (Auto) 3.74 (1.56-6.13) K/mm3 Lymph # (Auto) 1.51 (1.18-3.74) K/mm3 [place] # (Auto) 0.57 H (0.24-0.36) K/mm3 Eos # (Auto) 0.50 H (0.04-0.36) K/mm3 Baso # (Auto) 0.03 (0.01-0.08) K/mm3 Sodium 142 (136-145) mEq/L Potassium 3.9 (3.5-5.1) mEq/L Chloride 105 (98-107) mEq/L Carbon Dioxide 27 (21-32) mEq/L Anion Gap 13.9 (5-15) BUN 28 H (7-18) mg/dL Creatinine 1.0 (0.55-1.02) mg/dL Est Cr Clr Drug Dosing 37.26 mL/min Estimated GFR (MDRD) 54 (>60) mL/min BUN/Creatinine Ratio 28.0 H (14-18) Glucose 102 (83-115) mg/dL Calcium 8.9 (8.5-10.1) mg/dL Total Bilirubin 0.5 (0.2-1.0) mg/dL AST 73 H (15-37) U/L ALT 104 H (14-59) U/L Alkaline Phosphatase 50 (46-116) U/L C-Reactive Protein 1.1 H* (<1.0) mg/dL Total Protein 6.6 (6.4-8.2) g/dl Albumin 2.8 L (3.4-5.0) g/dl Globulin 3.8 gm/dL Albumin/Globulin Ratio 0.7 L (1-2) Result Diagrams: 06/07/20 04:52 06/06/20 04:28 Leonides Results Last 24 hrs: Microbiology 05/31/20 15:10 Aerobic Blood Culture - Preliminary Blood NO GROWTH AFTER 5 DAYS Anaerobic Blood Culture - Preliminary NO GROWTH AFTER 5 DAYS 05/31/20 15:00 Aerobic Blood Culture - Preliminary Blood NO GROWTH AFTER 5 DAYS Anaerobic Blood Culture - Preliminary NO GROWTH AFTER 5 DAYS Sepsis Event Note - Evaluation Sepsis Screening Result: No Definite Risk - Focused Exam Vital Signs: Vital Signs Temp Pulse Resp BP Pulse Ox Pulse Ox 06/06/20 06:00 36.6 C 84 20 126/80 94 L 06/05/20 23:03 37.1 C 78 16 115/73 91 L 06/05/20 20:01 90 L 06/05/20 19:52 36.8 C 82 20 117/69 91 L - Problem List Review Problem List Initiated/Reviewed/Updated: Yes - My Orders Last 24 Hours: My Active Orders 06/05/20 10:06 Communication Order [RC] ASDIRECTED 06/06/20 04:28 CBC WITH AUTO DIFF [HEME] AM 06/07/20 05:11 CBC WITH AUTO DIFF [HEME] AM CMP [COMPREHENSIVE METABOLIC PN,CMP] [CHEM] AM CRP [C-REACTIVE PROTEIN] [CHEM] AM 06/08/20 05:11 CBC WITH AUTO DIFF [HEME] AM CMP [COMPREHENSIVE METABOLIC PN,CMP] [CHEM] AM CRP [C-REACTIVE PROTEIN] [CHEM] AM - Plan Plan:: 05/31/2020 Assessment 75-year-old female with positive COVID-19 10 days ago and symptoms for 13 days from [place], [place] was transferred here as a direct admission from her clinic. COVID-19 pneumonia Possible right lower lobe pneumonia Elevated D-dimer Respiratory failurehypoxemic, continues to improve Elevated CRP of 4.5, now 1.1 * Patient diagnosed 10 days ago with COVID-19 and symptomatic for 13 days. * She has been worsening over the last few days. * D-dimer greater than 35, WBC 11, lactic acid 1.0, LDH 276, ferritin 1389, C- reactive protein 11.6 * CT of the chest was negative for PE * Lower extremities show no swelling or, edema, redness, or tenderness essentially making lower extremity VTE unlikely * Lovenox 40 mg SubQ BID * Patient is between 10 and 13 days past Covid and has already had 9 days of dexamethasone * She will not likely benefit from remdesivir * On 2 grams IV Rocephin day 4/; she will get her 5th dose later this afternoon * I would like to give her Actemra, but we do not have any and it is a drop shipment so we will not be able to get it for 4 to 5 days. Patient received Actemra therapy. * Patient remains on high flow now down to 31L at 30% FIO2 * She is now down to 2-3L NC * I was told her baseline is 2-3L NC at home prior to coming in to the hospital Iatrogenic hyperthyroidism Surgical removal of the thyroid secondary to thyroid cancer * She is on a combination of C levothyroxine/liothyronine 75 mcg / 25 mcg SR capsule daily * TSH is significantly low at 0.009 * Patient has a history of anxiety * Levothyroxin 75 mcg po AC Breakfast Generalized anxiety disorder with panic attacks * Patient is currently hyperthyroid and this would increase her anxiety and panic attacks * Stable Hypoalbuminemia * Likely secondary to poor oral intake secondary to COVID-19 * Potassium 3.3, albumin 2.7 * Repeat Albumin today is 2.8 Hypophosphatemia with PO4 of 2.1, resolved * Discontinue any IV fluids * Repeat level is 2.6 Hypertension * BP Improved * Continue home dose losartan and hydrochlorothiazide Numerous Liver Cysts * CT scan abnormal findings * Follow up outpatient Query Memory Impairment * We were told by family she has some baseline confusion * But no formal diagnosis * She is not on memory medications * Cognitive eval if services available * I was told services would not available until Wednesday. Consider outpatient referral Resolved: Hypokalemia, resolved Acute kidney injury, resolved * Creatinine 1.2 with an estimated GFR of 44 * Some prerenal component could be part of this with BUN of 39 a creatinine of 1.2 making her BUN to creatinine ratio greater than 20 * Known poor oral intake Mild Hypernatremia with Na of 147, now 142 Mild Hyperchloremia with Cl of 109, now 103 Plan: * Admit to medical floor on telemetry and continuous pulse ox * FiO2 to keep SPO2 between 88 and 94% * Rocephin x5 days * Pepcid, melatonin, vitamin D, zinc * Incentive spirometry and Acapella * DuoNeb every 6 hours as needed * Patient required high flow nasal cannula almost immediately once arriving to the floor * Elevated D-dimer prompted starting a bolus of heparin while we are waiting CTA. CT machine was down initially delaying imaging. Once PE was ruled out Heparin was stopped and patient will be switched over to Lovenox for VTE prophylaxis. * Give patient 1 L LR over 10 hours to help with dehydration and possible renal insufficiency. * Patient is out of the window for remdesivir. * Give last dose of dexamethasone. * Decrease thyroid medications to only levothyroxine at 75 mcg daily * Follow Covid labs daily * Hold hydrochlorothiazide but continue other medications as propria. * Dietary consult and encourage oral intake. * CODE STATUS: DNR/DNI * Next of kin Yvrose: 06/01/2020 No significant changes from overnight. Patient continues on high flow nasal cannula with 50 L/min and 55%. Started on Rocephin, and given last dose of dexamethasone yesterday. Actemra will be given today. Respiratory therapy will work on helping her with her atelectasis, start EZ Pap, incentive spirometry and Acapella encouraged. Fortunately, D-dimer did decrease significantly down to 10.6 from greater than 35 yesterday. Continue her on Lovenox 40 mg twice daily. C-reactive protein is elevated at 16. Potassium is normal at 4.1 resolving her hypokalemia. Hypoalbuminemia continues to be problem with her albumin of 2.4. Renal function has improved with some fluids overnight and her creatinine is down to 0.9. Estimated GFR greater than 60 she still has an elevated BUN of 37. No additional fluids since patient is taking orally well. Patient has a poor prognosis. 06/02/2020 Patient continues to improve overnight. She is down to 40 L via high flow nasal cannula. Appetite remains good although she continues to have dropping of her albumin. It is down to 2.3 this is consistent with COVID-19 infection. Reading of the CTA of the chest found several liver cysts some of the uncomplicated but none of them appear malignant at this time. Patient states that in the past she has had a full work-up for her liver cysts. Labs continue to improve. Her D-dimer is down to 2.23. This is a significant improvement from admission when it was greater than 35. C-reactive protein is also down to 9.3. Electrolytes are normal. Patient did get 1 dose of Actemra yesterday and were going to give her 300 mg today. This is to decrease any more cytokine storm and inflammation. We have held her hydrochlorothiazide since she has been here and her blood pressures are pretty stable in the low 140s systolic. Plan will be to continue current treatment. Continue to wean off of high flow nasal cannula. Continue Acapella and incentive spirometry. She is on day 3 of Rocephin. Repeat Covid labs in the morning. 06/03/2020 She desaturated overnight in the 80s. She is now at 40% FiO2 35L high flow. She is willing to prone after breakfast. Continue current treatment. Routine AM Labs. Encourage to ambulate inside her room as many times as she can. IS and beside pulmonary exercise. Blood pressures are now elevated, we will resume home dose HCTZ. Resume Vit B12 and Vit D as well as home dose Melatonin. PT/OT for deconditioning. SW/CM for discharge planning. LOS > 96 hrs, she requires more time with treatment being on high flow. Prognosis is guarded. 06/04/2020 She is now at 30% FiO2 at 31L high flow. Encourage to continue proning. Continue current treatment. Routine AM Labs. Encourage to ambulate inside her room as many times as she can. IS and beside pulmonary exercise. PT/OT for deconditioning. SW/CM for discharge planning. LOS > 96 hrs, she requires more time with treatment being on high flow. Prognosis remains guarded. 06/05/2020 She is relatively stable. She is now at 3.5-4L NC sating in the low 90s. Continue to encourage proning. Continue current treatment. Routine AM Labs. Encourage to ambulate inside her room as many times as she can. IS and beside pulmonary exercise. Repeat chest x-ray this AM. PT/OT for deconditioning. SW/CM for discharge planning. LOS > 96 hrs, she requires more time with treatment. Prognosis is guarded-good. 0924: Repeat chest x-ray appears improved lungs. We will continue with aggressive proning. 06/06/2020 She remains relatively stable. She is now at 2-3L NC sating in the low to mid 90s. Continue to encourage proning. Continue current treatment. Routine AM Labs. Encourage to ambulate inside her room as many times as she can. IS and beside pulmonary exercise. PT/OT for deconditioning. SW/CM for discharge planning. LOS > 96 hrs, she requires more time with treatment. Prognosis is good with decreasing O2 requirement. Possible discharge in 1-2 days.
[2020-06-06] MEDS: Enoxaparin 40 MG/0.4 ML Syringe SUBCUT SCH ×2 (08:17→20:10)
[2020-06-06] MEDS: Cholecalciferol (Vitamin D3) 25 MCG Tab PO SCH (08:18)
[2020-06-06] MEDS: Cyanocobalamin (Vitamin B12) 1,000 MCG Tab PO SCH (08:19)
[2020-06-06] MEDS: Aspirin 81 MG Tab.EC PO SCH (08:20)
[2020-06-06] MEDS: Famotidine 20 MG Tab PO SCH ×2 (08:21→20:13)
[2020-06-06] MEDS: Hydrochlorothiazide 25 MG Tab PO SCH (08:21)
[2020-06-06] MEDS: Zinc Sulfate 220 MG Cap PO SCH (08:22)
[2020-06-06] MEDS: Losartan 100 MG Tab PO SCH (08:26)
[2020-06-06] MEDS: Montelukast 10 MG Tab PO SCH (20:13)
[2020-06-07] MEDS: Levothyroxine 75 MCG Tab PO SCH (06:34)
--- NOTE | 2020-06-07 06:59 | PCM.DCSUM1 ---
Discharge Summary - Hospital Course Brief History: 75-year-old female with past medical hx/o Thyroid cancer, postoperative hypothyroidism tubulovillous adenoma, generalized anxiety disorder with panic attacks, osteoarthritis of the left knee, obstructive sleep apnea, osteopenia, central retinal artery occlusion, right, diverticulitis/diverticulosis, hypertension, hyperlipidemia, memory loss; diagnosed with COVID-19 on 05/22/2020 who was admitted for worsening respiratory symptoms. Diagnosis: Stroke: No Modified [place] Scale: No Symptoms at All Modified Mery Scale Score: 0 - Discharge Data Discharge Date: 06/07/20 Discharge Disposition: Home, Self-Care 01 Condition: Good - Referral to Home Health Primary Care Physician: Yuniel Tucker MD - Patient Summary/Data Operative Procedure(s) Performed: None Complications: None Consults: Consultations 05/31/20 14:41 OT Evaluation and Treatment [CONS] Routine PT Evaluation and Treatment [CONS] Routine 05/31/20 21:34 Consult to Dietary [Consult to Field Logistics Coordinator] [CONS] Routine 06/06/20 10:54 Consult to Speech Language Pathology [WIREWORKER Evaluation and Treatment] [CONS] Routine Recommended Follow-up Testing/Procedures: Labs Hospital Course: Patient was primarily admitted for worsening covid-19 infection. She was symptomatic 3 days before she tested positive for the viral infection. She came to us all the way to [facility] for treatment. Patient received standard therapy along with aggressive proning as well as beside pulmonary activities and she slowly improved on this regimen. Her hospital course was uncomplicated. Once deemed medically stable and back to her baseline supplemental O2 of 2L, she was then sent back home in the care of her children. Patient was discharged with oral antifungal agent and was advised to follow up PCP with repeat chemistry in 1 week. - Patient Instructions Diet: Usual Diet as Tolerated Activity: As Tolerated Driving: Do Not Drive Showering/Bathing: May Shower Notify Provider of: Fever, Increased Pain, Nausea and/or Vomiting - Discharge Plan *PRESCRIPTION DRUG MONITORING PROGRAM REVIEWED*: Not Applicable *COPY OF PRESCRIPTION DRUG MONITORING REPORT IN PATIENT MICHELLE: Not Applicable Prescriptions/Med Rec: Fluconazole [Diflucan] 100 mg PO DAILY #13 tablet Home Medications: Home Meds Acetaminophen [Tylenol] 325 mg PO DAILY PRN 05/31/20 [History] Albuterol Sulfate [Albuterol Sulfate HFA] 2 puff INH Q4H PRN 05/31/20 [History] Aspirin [Aspirin EC] 81 mg PO DAILY 05/31/20 [History] C-Levothyroxine/Liothyronine 1 tab PO DAILY 05/31/20 [History] Calc/D3/Mag/Zn/Anitra/Preet/[place] [Calcium 600 MG Plus Vit D] 2 tab PO DAILY 05/31/20 [History] Cholecalciferol (Vitamin D3) [Vitamin D3] 2,000 units PO DAILY 05/31/20 [History] Cyanocobalamin (Vitamin B12) [Vitamin B12] 500 mcg PO DAILY 05/31/20 [History] Losartan Potassium 100 mg PO DAILY 05/31/20 [History] Melatonin 10 mg PO BEDTIME PRN 05/31/20 [History] Montelukast [Singulair] 10 mg PO BEDTIME 05/31/20 [History] Naproxen Sodium 220 mg PO DAILY PRN 05/31/20 [History] Rosuvastatin Calcium 20 mg PO TUFR 05/31/20 [History] hydroCHLOROthiazide [Hydrochlorothiazide] 50 mg PO DAILY 05/31/20 [History] Fluconazole [Diflucan] 100 mg PO DAILY #13 tablet 06/07/20 [Rx] Oxygen Therapy Mode: Nasal Cannula Oxygen Flow Rate (L/min): 2 Patient Handouts: 10 Things You Can Do to Manage Your COVID-19 Symptoms at Home - CDC, Home Oxygen Use, Adult, COVID-19: How to Protect Yourself and Others - CDC, Oximetry, Community-Acquired Pneumonia, Adult, [id number] Referrals: Yuniel Tucker MD [Primary Care Provider] - 06/18/20 9:00 am (come at least 15 minutes prior to the appointment to register.) - Discharge Summary/Plan Comment DC Time >30 min.: No Discharge Summary/Plan Comment: Discharge to Home - General Info Date of Service: 06/07/20 Admission Dx/Problem (Free Text: Admission Diagnosis/Problem Admission Diagnosis/Problem Pneumonia, organism unspecified Subjective Update: No overnight or acute issues. No complaints this AM. She continues to do well. She is now at 2-3 L NC sating in the low 90s. She slept in prone position started at 2300 last night. She remains afebrile w/o leukocytosis. She is doing fine with beside PT/OT activities. She states she is not on supplemental O2 at home and does not have any forms of O2 to use if needed. She feels pretty good and ready to go home. Functional Status: Reports: Pain Controlled, Tolerating Diet, Ambulating, Urinating, Incentive Spirometry. Denies: New Symptoms - Review of Systems General: Denies: Fever, Chills Pulmonary: Denies: Shortness of Breath, Cough Cardiovascular: Denies: Chest Pain Gastrointestinal: Denies: Abdominal Pain, Nausea, Vomiting Genitourinary: Reports: No Symptoms Musculoskeletal: Reports: No Symptoms Skin: Denies: Cyanosis, Pallor Neurological: Denies: Dizziness Psychiatric: Denies: Confusion, Anxiety, Cravings - Patient Data Vitals - Most Recent: Last Vital Signs Temp 36.8 C 06/06/20 20:19 Pulse 76 06/06/20 20:19 Resp 16 06/06/20 20:19 BP 111/82 06/06/20 20:19 Pulse Ox 94 L 06/06/20 22:30 Weight - Most Recent: 75.568 kg I&O - Last 24 hours: Intake & Output 06/06/20 06/06/20 06/07/20 14:59 22:59 06:59 Intake Total 500 400 Output Total 300 Balance 500 100 Lab Results - Last 24 hrs: Laboratory Results - last 24 hr 06/06/20 06/07/20 Range/Units 04:28 04:52 WBC 5.96 (3.98-10.04) K/mm3 RBC 5.05 (3.98-5.22) M/mm3 Hgb 13.9 (11.2-15.7) gm/dl Hct 45.1 H (34.1-44.9) % MCV 89.3 (79.4-94.8) fl MCH 27.5 (25.6-32.2) pg MCHC 30.8 L (32.2-35.5) g/dl RDW Std Deviation 48.0 H (36.4-46.3) fL Plt Count 252 (182-369) K/mm3 MPV 11.3 (9.4-12.3) fl Neut % (Auto) 52.0 (34.0-71.1) % Lymph % (Auto) 27.0 (19.3-51.7) % [place] % (Auto) 12.8 H (4.7-12.5) % Eos % (Auto) 6.7 H (0.7-5.8) Baso % (Auto) 0.8 (0.1-1.2) % Neut # (Auto) 3.10 (1.56-6.13) K/mm3 Lymph # (Auto) 1.61 (1.18-3.74) K/mm3 [place] # (Auto) 0.76 H (0.24-0.36) K/mm3 Eos # (Auto) 0.40 H (0.04-0.36) K/mm3 Baso # (Auto) 0.05 (0.01-0.08) K/mm3 Manual Slide Review Normal smear MICHAEL Results - Last 24 hrs: Microbiology 05/31/20 15:10 Aerobic Blood Culture - Preliminary Blood NO GROWTH AFTER 6 DAYS Anaerobic Blood Culture - Preliminary NO GROWTH AFTER 6 DAYS 05/31/20 15:00 Aerobic Blood Culture - Preliminary Blood NO GROWTH AFTER 6 DAYS Anaerobic Blood Culture - Preliminary NO GROWTH AFTER 6 DAYS Med Orders - Current: Current Medications Acetaminophen (Tylenol) 650 mg PO Q4H PRN PRN Reason: Pain (Mild 1-3)/fever Last Admin: 05/31/20 16:42 Dose: 650 mg Documented by: Albuterol/Ipratropium (Duoneb 3.0-0.5 Mg/3 Ml) 3 ml NEB Q6HRRT PRN PRN Reason: Dyspnea Aspirin (Halfprin) 81 mg PO DAILY [facility] Last Admin: 06/06/20 08:20 Dose: 81 mg Documented by: Cholecalciferol (Vitamin D3) 50 mcg PO DAILY [facility] Last Admin: 06/06/20 08:18 Dose: 50 mcg Documented by: Cyanocobalamin (Vitamin B12) 500 mcg PO DAILY [facility] Last Admin: 06/06/20 08:19 Dose: 500 mcg Documented by: Enoxaparin Sodium (Lovenox) 40 mg SUBCUT Q12H [facility] Last Admin: 06/06/20 20:10 Dose: 40 mg Documented by: Famotidine (Pepcid) 20 mg PO BID [facility] Last Admin: 06/06/20 20:13 Dose: 20 mg Documented by: Fluconazole (Diflucan) 200 mg PO DAILY [facility] Hydrochlorothiazide (Hydrochlorothiazide) 50 mg PO DAILY [facility] Last Admin: 06/06/20 08:21 Dose: 50 mg Documented by: Levothyroxine Sodium (Levothyroxine) 75 mcg PO ACBREAKFAST [facility] Last Admin: 06/07/20 06:34 Dose: 75 mcg Documented by: Losartan Potassium (Cozaar) 100 mg PO DAILY [facility] Last Admin: 06/06/20 08:26 Dose: 100 mg Documented by: Melatonin (Melatonin) 9 mg PO BEDTIME PRN PRN Reason: Sleep Last Admin: 06/06/20 20:14 Dose: 9 mg Documented by: Montelukast Sodium (Singulair) 10 mg PO BEDTIME [facility] Last Admin: 06/06/20 20:13 Dose: 10 mg Documented by: Zinc Sulfate (Zincate) 220 mg PO DAILY [facility] Last Admin: 06/06/20 08:22 Dose: 220 mg Documented by: Discontinued Medications Cholecalciferol (Vitamin D3) 5,000 unit PO DAILY [facility] Last Admin: 06/03/20 08:36 Dose: 5,000 unit Documented by: Dexamethasone (Dexamethasone) 6 mg PO ONETIME ONE Stop: 05/31/20 15:01 Last Admin: 05/31/20 16:41 Dose: 6 mg Documented by: Enoxaparin Sodium (Lovenox) 40 mg SUBCUT DAILY [facility] Heparin Sodium (Porcine) (Heparin Sodium) 5,000 units IVPUSH .BOLUS ONE Stop: 05/31/20 17:31 Last Admin: 05/31/20 17:45 Dose: 5,000 units Documented by: Ceftriaxone Sodium 2 gm/ (Sodium Chloride) 100 mls @ 200 mls/hr IV Q24H [facility] Stop: 06/04/20 15:29 Last Admin: 06/04/20 15:05 Dose: 200 mls/hr Documented by: Heparin Sodium/Dextrose (Heparin 25,000 Units In D5w 500 Ml) 25,000 units in 500 mls @ 26 mls/hr IV TITRATE [facility]; Protocol Last Admin: 05/31/20 17:45 Dose: 1,300 units/hr, 26 mls/hr Documented by: Magnesium Sulfate 2 gm/ Premix 50 mls @ 25 mls/hr IV ONETIME ONE Stop: 05/31/20 19:30 Last Admin: 05/31/20 18:14 Dose: 25 mls/hr Documented by: Lactated Ringer's (Ringers, Lactated) 1,000 mls @ 100 mls/hr IV ASDIRECTED [facility] Stop: 06/01/20 07:14 Last Admin: 06/01/20 00:21 Dose: 100 mls/hr Documented by: Tocilizumab 600 mg/ Sodium (Chloride) 100 mls @ 100 mls/hr IV ONETIME [facility] Tocilizumab 600 mg/ Sodium (Chloride) 100 mls @ 100 mls/hr IV ONETIME ONE Stop: 06/01/20 14:29 Last Admin: 06/01/20 13:31 Dose: 100 mls/hr Documented by: Tocilizumab 300 mg/ Sodium (Chloride) 100 mls @ 100 mls/hr IV ONETIME ONE Stop: 06/02/20 13:59 Last Admin: 06/02/20 12:59 Dose: 100 mls/hr Documented by: Iopamidol (Isovue-370 (76%)) 100 ml IVPUSH ONETIME ONE Stop: 05/31/20 18:20 Last Admin: 05/31/20 18:51 Dose: 100 ml Documented by: Melatonin (Melatonin) 9 mg PO BEDTIME [facility] Last Admin: 06/02/20 20:23 Dose: 9 mg Documented by: Potassium Chloride (Klor-Con M20) 40 meq PO ONETIME ONE Stop: 05/31/20 17:16 Last Admin: 05/31/20 17:46 Dose: 40 meq Documented by: Zinc Sulfate (Zincate) 220 mg PO ONETIME ONE Stop: 06/01/20 09:01 Last Admin: 06/01/20 09:23 Dose: 220 mg Documented by: - Exam General: Reports: Alert, Oriented, Cooperative, No Acute Distress HEENT: Reports: Pupils Equal, Pupils Reactive, EOMI, Mucous Membr. Moist/[place] Neck: Reports: Supple Lungs: Reports: Clear to Auscultation, Normal Respiratory Effort Cardiovascular: Reports: Regular Rate, Regular Rhythm GI/Abdominal Exam: Normal Bowel Sounds, Non-Tender, No Organomegaly, No Mass, Pelvis Stable (Female) Exam: Deferred Rectal (Female) Exam: Deferred Back Exam: Reports: Normal Inspection, Decreased Range of Motion Extremities: Normal Inspection, Normal Range of Motion, Non-Tender, No Pedal Edema, Normal Capillary Refill Skin: Reports: Warm, Dry, Intact Neurological: Reports: No New Focal Deficit Psy/Mental Status: Reports: Alert, Normal Affect, Normal Mood
[2020-06-07] MEDS: Cholecalciferol (Vitamin D3) 25 MCG Tab PO SCH (08:54)
[2020-06-07] MEDS: Zinc Sulfate 220 MG Cap PO SCH (08:54)
[2020-06-07] MEDS: Losartan 100 MG Tab PO SCH (08:55)
[2020-06-07] MEDS: Cyanocobalamin (Vitamin B12) 1,000 MCG Tab PO SCH (08:58)
[2020-06-07] MEDS: Aspirin 81 MG Tab.EC PO SCH (08:58)
[2020-06-07] MEDS: Famotidine 20 MG Tab PO SCH (08:58)
[2020-06-07] MEDS: Hydrochlorothiazide 25 MG Tab PO SCH (08:59)
[2020-06-07] MEDS: Enoxaparin 40 MG/0.4 ML Syringe SUBCUT SCH (08:59)
[2020-06-07] MEDS ORDERED: Fluconazole 100 MG Tab PO SCH (09:00)
[2020-06-07] MEDS ORDERED: FLU Vacc QV2020-21(65YR UP)/PF 240 MCG/0.7 ML Syringe IM ONE (12:22)
--- NOTE | 2020-06-12 15:26 | PCM.EKG ---
#1 Interpretation EKG Date: 05/31/20 Time: 15:15 Rhythm: NSR Rate (Beats/Min): 86 [place]: Normal P-Wave: Present QRS: Normal ST-T: Normal QT: Normal EKG Interpretation Comments: Poor r wave progression
== END 2020-06-07 12:54 | disposition home or self-care (01) | DRG 177 ==
LOC: JD.MS 13:16
PROVIDERS: ADMIT Family Medicine; ATTEND Family Medicine
PROC: 5A0955A Assistance with Respiratory Ventilation, Greater than 96 Consecutive Hours, High Flow/Velocity Cannula (ICD-10-PCS; principal; 2020-05-31)
PROC: 8E0ZXY6 Isolation (ICD-10-PCS; 2020-05-31)
PROC: 3E02340 Introduction of Influenza Vaccine into Muscle, Percutaneous Approach (ICD-10-PCS; 2020-06-07)
DX: U07.1 COVID-19 (principal); J12.82 Pneumonia due to coronavirus disease 2019; J96.01 Acute respiratory failure with hypoxia; N17.9 Acute kidney failure, unspecified; E87.0 Hyperosmolality and hypernatremia; E87.6 Hypokalemia; E88.09 Other disorders of plasma-protein metabolism, not elsewhere classified; Z66 Do not resuscitate; F41.0 Panic disorder [episodic paroxysmal anxiety]; E83.39 Other disorders of phosphorus metabolism; K76.89 Other specified diseases of liver; E87.8 Other disorders of electrolyte and fluid balance, not elsewhere classified; E86.0 Dehydration; E89.0 Postprocedural hypothyroidism; R41.3 Other amnesia; F41.1 Generalized anxiety disorder; I10 Essential (primary) hypertension; G47.33 Obstructive sleep apnea (adult) (pediatric); M17.11 Unilateral primary osteoarthritis, right knee; Z96.652 Presence of left artificial knee joint; Z85.850 Personal history of malignant neoplasm of thyroid; Z87.891 Personal history of nicotine dependence; Z91.018 Allergy to other foods; Z91.011 Allergy to milk products; Z88.1 Allergy status to other antibiotic agents; Z79.82 Long term (current) use of aspirin; Z79.890 Hormone replacement therapy; Z79.899 Other long term (current) drug therapy; Z23 Encounter for immunization
CPT/HCPCS: 36415; 36600; 71045; 71045-26; 71275; 71275-26; 80048; 80053; 80076; 81003; 82728; 82803; 83605; 83615; 83735; 83880; 84100; 84145; 84443; 84484; 85025; 85379; 85610; 85730; 86140; 87040; 87070; 87106; 87205; 90662; 93005; 94667; 94668; 94761; 94762; 97110-GP; 97116-GP; 97162-GP; 97165-GO; 99223; 99232; 99233; 99239; A9270-GY; G0008; J0696; J1644; J1650; J3262; J3475; J7120; J8540; Q9967